=== PATIENT | male | born 1955 | race Caucasian/White ===

== ENCOUNTER 2022-12-30 11:33 | Emergency (ER) | payer MEDICAID, SELFPAY ==
--- NOTE | ~2022-12-30 | CT_ITS ---
EXAMINATION: CT ABDOMEN AND PELVIS WITH CONTRAST CLINICAL INFORMATION: Tenderness of a left inguinal hernia COMPARISON: None available. TECHNIQUE: Multidetector volumetric images were obtained from the superior aspect of the liver through the pubic symphysis following administration 85 mL of Omnipaque 350 intravenous contrast. Sagittal and coronal reformatted images were obtained on the technologist's workstation. Oral contrast: No This CT examination was performed using dose optimization techniques as appropriate, variously including the following: *Automated exposure control *Adjustment of mA and/or kV according to patient size (this includes techniques or standardized protocols for targeted exams where dose is matched to indication/reason for exam; i.e. extremities or head) *Use of iterative reconstruction technique DLP: 750 mGy-cm FINDINGS: LUNG BASES: The visualized lung bases are unremarkable. LIVER, GALLBLADDER, AND BILIARY TREE: The liver is normal in size, shape, and attenuation. No focal hepatic lesion or biliary ductal dilatation is present. The gallbladder is unremarkable with no evidence of radiopaque gallstones, gallbladder wall thickening, or obvious pericholecystic inflammatory changes. PANCREAS: Unremarkable. SPLEEN: Unremarkable. ADRENAL GLANDS: Unremarkable. KIDNEYS AND URETERS: The kidneys are normal in size, shape, and attenuation. No hydronephrosis, hydroureter, or calculi seen. No perinephric stranding. Simple left renal cyst. No specific follow-up recommended. BLADDER: Unremarkable. GASTROINTESTINAL TRACT: The stomach is decompressed. Normal caliber small bowel. There is no obstruction. Normal appendix. There is extensive colonic diverticulosis, throughout the entirety of the colon. No diverticulitis noted. A portion of the sigmoid colon extends into the left inguinal hernia. No free air. No free fluid. ABDOMINAL WALL: Large left inguinal hernia which contains a portion of the sigmoid colon. No free fluid. Minimal stranding of the fat within the hernia sac. LYMPH NODES: Normal. VASCULAR: Unremarkable. PELVIC VISCERA: Significantly enlarged prostate. This measures 6.3 cm transverse. OSSEOUS STRUCTURES: No acute or suspicious osseous abnormality. Bilateral L5 pars defects. Degenerative change throughout the spine. Vacuum disc phenomenon at the lower lumbar spine. Mild degenerative changes of the hips. CT/CT abdomen pelvis w IV con IMPRESSION: 1. Large left inguinal hernia containing a portion of the sigmoid colon. Minimal stranding of the fat within the hernia sac, which appears separate from the bowel. No free fluid. No bowel wall thickening. No convincing evidence for diverticulitis. 2. Extensive pancolonic diverticulosis. Fleischner guidelines were followed.
[2022-12-30 11:37] VITALS: BP 147/86; PULSE 80; RESP 17; TEMP 36.6; O2SAT 98; BMI 28.9
--- NOTE | 2022-12-30 11:38 | ED.ABDPAIN ---
HPI - Abdominal Pain General Chief Complaint: Abdominal Pain <FREDERICK Jansen - Last Filed: 12/30/22 11:43> Stated Complaint: Abd pain <FREDERICK Jansen - Last Filed: 12/30/22 11:43> Time Seen by Provider: 12/30/22 12:57 <FREDERICK Jansen - Last Filed: 12/30/22 11:43> Source: patient <Nathaniel Pedraza MD - Last Filed: 12/30/22 15:54> Mode of arrival: ambulatory <Nathaniel Pedraza MD - Last Filed: 12/30/22 15:54> Limitations: no limitations <Nathaniel Pedraza MD - Last Filed: 12/30/22 15:54> History of Present Illness HPI narrative: 67-year-old male presents with abdominal pain. The pain started about 1 week ago. The pain is constant. Progressively getting worse. There is no clear relieving features. Worse with lying down. He describes urinary frequency and urgency but no dysuria or blood in his urine. Denies any fevers or chills. Denies any nausea vomiting. Denies any diarrhea or constipation. He describes the pain as ?pain. ? The pain is moderate to severe. The pain does not radiate. Patient has never had this pain before. <Nathaniel Pedraza MD - Last Filed: 12/30/22 15:54> Related Data Home Medications: Previous Rx's Medication Instructions Recorded oxycodone 5 mg tablet 5 mg PO Q8H PRN pain #7 tabs 12/30/22 <FREDERICK Jansen - Last Filed: 12/30/22 11:43> Allergies/Adverse Reactions: Allergies Allergy/AdvReac Type Severity Reaction Status Date / Time No Known Allergies Allergy Verified 12/30/22 11:36 <FREDERICK Jansen - Last Filed: 12/30/22 11:43> [facility] Social History Social History: Social History Advance Directives: No Advance Directives Information Provided: Yes <FREDERICK Jansen - Last Filed: 12/30/22 11:43> Physical Exam ED Vital Signs: Vital Signs - 24 hr 12/30/22 11:37 Temperature 98 F Pulse Rate 80 Respiratory Rate 17 Blood Pressure 147/86 H Pulse Oximetry 98 Oxygen Delivery Method Room Air BMI result Body Mass Index 28.9 <FREDERICK Jansen - Last Filed: 12/30/22 11:43> Vital Signs - 24 hr 12/30/22 11:37 Temperature 98 F Pulse Rate 80 Respiratory Rate 17 Blood Pressure 147/86 H Pulse Oximetry 98 Oxygen Delivery Method Room Air BMI result Body Mass Index 28.9 <Nathaniel Pedraza MD - Last Filed: 12/30/22 15:54> GEN: Well developed, no acute distress, alert, oriented HEENT: Normocephalic, atraumatic, normal external ears, nose appears normal, no oropharyngeal edema or exudates Eyes: Normal to appearance Neck: Supple, no lymphadenopathy Respiratory: Talks in complete sentences, no respiratory distress, clear to auscultation bilaterally Cardiovascular: Regular rate and rhythm, no murmurs rubs or gallops Abdomen: Soft, nontender, nondistended, no guarding, no rebound, negative McBurney's point tenderness, negative Alicia sign Back: Right-sided CVA tenderness Extremities: No clubbing cyanosis or edema Neurologic: No focal neurologic deficits, cranial nerves 2-12 intact, strength is 5/5 bilaterally, gait normal Skin: No rash <Nathaniel Pedraza MD - Last Filed: 12/30/22 15:54> Course Course Course Narrative: RME - 67 yo Icelandic speaking male presents to the ER for evaluation of a worsening left inguinal hernia. He states 1 week ago it popped out and has been very painful. He is able to partially push it back in and hold it in place with a belt. +nausea but no vomiting. Normal BMs. Large left inguinal hernia on exam, tender - difficult to fully examine in triage. Plan: CT scan, labs <FREDERICK Jansen - Last Filed: 12/30/22 11:43> Reevaluation(s) Reevaluation #1: Patient's pain is controlled at this time. He his pain complaints on the right side. He was noted to have a left inguinal hernia which I was able to reduce it was minimally tender. There is no evidence of obstruction. We discussed concerning signs and symptoms of an incarcerated strangulated hernia. He will return for the symptoms. Will refer to General surgery. The etiology of his right-sided pain is not clearly understood at this time. As far as that pain goes, for uncontrolled pain, any concerning symptoms, he is instructed to return to the hospital. <Nathaniel Pedraza MD - Last Filed: 12/30/22 15:54> Time: 15:52 <Nathaniel Pedraza MD - Last Filed: 12/30/22 15:54> Medical Decision Making Medical Decision Making MDM Narrative: 67-year-old male presents with abdominal pain. Examination revealed right CVA tenderness. Differential diagnosis is broad but includes renal colic as are leading diagnosis. Patient will receive CT scan laboratory analysis, analgesics, antiemetics and fluids for the time being. I doubt catastrophic/red flag event such as AAA, dissection, perforated viscus <Nathaniel Pedraza MD - Last Filed: 12/30/22 15:54> Differential Diagnosis Differential Diagnoses: The differential diagnosis associated with the presentation includes (Renal colic, biliary colic, colitis, diverticulitis, appendicitis, IBD, IBS, mesenteric adenitis) <Nathaniel Pedraza MD - Last Filed: 12/30/22 15:54> Right abdominal pain, left inguinal hernia <Nathaniel Pedraza MD - Last Filed: 12/30/22 15:54> Admission/Observation Consideration of admission/observation: Escalation of care including admission/observation considered <Nathaniel Pedraza MD - Last Filed: 12/30/22 15:54> Lab Data [facility] Lab Attestation statement: I reviewed the patient's lab results. <Nathaniel Pedraza MD - Last Filed: 12/30/22 15:54> Result Diagrams: 12/30/22 11:52 12/30/22 11:52 <FREDERICK Jansen - Last Filed: 12/30/22 11:43> Labs: Lab Results 12/30/22 12/30/22 12/30/22 Range/Units 11:52 11:52 11:52 WBC 9.3 (4.8-10.8) X10*3/uL RBC 5.27 (4.60-5.80) X10*6/uL Hgb 14.4 (14.0-18.0) g/dl Hct 43.2 (42.0-52.0) % MCV 82.0 (80.0-98.0) fL MCH 27.3 (27.0-33.0) pg MCHC 33.3 (31.0-36.0) g/dl RDW 14.4 (11.0-16.0) % Plt Count 193 (160-400) X10*3/uL MPV 11.2 (9.4-12.4) fL Immature Gran % (Auto) 0.1 (0.0-0.4) % Neut % (Auto) 36.1 L (45-73) % Lymph % (Auto) 38.3 (20-40) % Brantley % (Auto) 8.9 (2-11) % Eos % (Auto) 15.6 H (0-4) % Baso % (Auto) 1.0 (0-2) % Lymph # (Auto) 3.6 (1.2-4.9) X10*3/uL Brantley # (Auto) 0.8 (0.1-1.2) X10*3/uL Eos # (Auto) 1.5 H (0.0-0.4) X10*3/uL Baso # (Auto) 0.1 (0.0-0.2) X10*3/uL Abs Immat Gran (auto) 0.01 (0.00-0.03) X10*3/uL Absolute Neuts (auto) 3.4 (2.0-8.3) x10*3/uL Absolute Nucleated RBC 0.000 (0.0-0.012) X10*3/uL Nucleated RBC % (auto) 0.0 (0.0-0.2) /100WBC PT 11.2 (10.0-13.1) SEC INR 1.0 (0.9-1.1) APTT 34.7 (26.0-36.4) SEC Sodium 139 (135-145) mmol/L Potassium 3.9 (3.3-5.1) mmol/L Chloride 104 (96-108) mmol/L Carbon Dioxide 27 (22-29) mmol/L Anion Gap 12 (12-20) BUN 20 H (9-16) mg/dL Creatinine 1.11 (0.5-1.4) mg/dL Estim Creat Clear Calc 59.8 Estimated GFR > 60 Random Glucose 91 (60-115) mg/dL Lactic Acid (0.5-2.0) mmol/L Calcium 9.5 (8.4-10.2) mg/dL Magnesium 2.0 (1.6-2.6) mg/dL Total Bilirubin 0.9 (0.0-1.0) mg/dL Direct Bilirubin 0.2 (0.0-0.5) mg/dL AST 30 (5-37) U/L ALT 20 (0-40) U/L Alkaline Phosphatase 57 (39-117) U/L Total Protein 7.8 (6.5-8.0) g/dL Albumin 4.6 (3.5-5.0) g/dL Urine Color Urine Appearance Urine pH (5.0-9.0) Ur Specific Cl[place] (1.005-1.025) Urine Protein (Neg-Trace) mg/dL Urine Glucose (UA) (Negative) mg/dL Urine Ketones (Negative) mg/dL Urine Blood (Negative) Urine Nitrite (Negative) Ur Leukocyte Esterase (Negative) COVID-19 ([facility]) (Negative) COVID-19 Clin Com 12/30/22 12/30/22 12/30/22 Range/Units 11:52 11:52 12:05 WBC (4.8-10.8) X10*3/uL RBC (4.60-5.80) X10*6/uL Hgb (14.0-18.0) g/dl Hct (42.0-52.0) % MCV (80.0-98.0) fL MCH (27.0-33.0) pg MCHC (31.0-36.0) g/dl RDW (11.0-16.0) % Plt Count (160-400) X10*3/uL MPV (9.4-12.4) fL Immature Gran % (Auto) (0.0-0.4) % Neut % (Auto) (45-73) % Lymph % (Auto) (20-40) % Brantley % (Auto) (2-11) % Eos % (Auto) (0-4) % Baso % (Auto) (0-2) % Lymph # (Auto) (1.2-4.9) X10*3/uL Brantley # (Auto) (0.1-1.2) X10*3/uL Eos # (Auto) (0.0-0.4) X10*3/uL Baso # (Auto) (0.0-0.2) X10*3/uL Abs Immat Gran (auto) (0.00-0.03) X10*3/uL Absolute Neuts (auto) (2.0-8.3) x10*3/uL Absolute Nucleated RBC (0.0-0.012) X10*3/uL Nucleated RBC % (auto) (0.0-0.2) /100WBC PT (10.0-13.1) SEC INR (0.9-1.1) APTT (26.0-36.4) SEC Sodium (135-145) mmol/L Potassium (3.3-5.1) mmol/L Chloride (96-108) mmol/L Carbon Dioxide (22-29) mmol/L Anion Gap (12-20) BUN (9-16) mg/dL Creatinine (0.5-1.4) mg/dL Estim Creat Clear Calc Estimated GFR Random Glucose (60-115) mg/dL Lactic Acid 3.0 H* (0.5-2.0) mmol/L Calcium (8.4-10.2) mg/dL Magnesium (1.6-2.6) mg/dL Total Bilirubin (0.0-1.0) mg/dL Direct Bilirubin (0.0-0.5) mg/dL AST (5-37) U/L ALT (0-40) U/L Alkaline Phosphatase (39-117) U/L Total Protein (6.5-8.0) g/dL Albumin (3.5-5.0) g/dL Urine Color Yellow Urine Appearance Clear Urine pH 5.5 (5.0-9.0) Ur Specific Clov[place] 1.015 (1.005-1.025) Urine Protein Negative (Neg-Trace) mg/dL Urine Glucose (UA) Negative (Negative) mg/dL Urine Ketones Negative (Negative) mg/dL Urine Blood Negative (Negative) Urine Nitrite Negative (Negative) Ur Leukocyte Esterase Negative (Negative) COVID-19 ([facility]) Negative (Negative) COVID-19 Clin Com See Note <FREDERICK Jansen - Last Filed: 12/30/22 11:43> Lab Results 12/30/22 12/30/22 12/30/22 Range/Units 11:52 11:52 11:52 WBC 9.3 (4.8-10.8) X10*3/uL RBC 5.27 (4.60-5.80) X10*6/uL Hgb 14.4 (14.0-18.0) g/dl Hct 43.2 (42.0-52.0) % MCV 82.0 (80.0-98.0) fL MCH 27.3 (27.0-33.0) pg MCHC 33.3 (31.0-36.0) g/dl RDW 14.4 (11.0-16.0) % Plt Count 193 (160-400) X10*3/uL MPV 11.2 (9.4-12.4) fL Immature Gran % (Auto) 0.1 (0.0-0.4) % Neut % (Auto) 36.1 L (45-73) % Lymph % (Auto) 38.3 (20-40) % Brantley % (Auto) 8.9 (2-11) % Eos % (Auto) 15.6 H (0-4) % Baso % (Auto) 1.0 (0-2) % Lymph # (Auto) 3.6 (1.2-4.9) X10*3/uL Brantley # (Auto) 0.8 (0.1-1.2) X10*3/uL Eos # (Auto) 1.5 H (0.0-0.4) X10*3/uL Baso # (Auto) 0.1 (0.0-0.2) X10*3/uL Abs Immat Gran (auto) 0.01 (0.00-0.03) X10*3/uL Absolute Neuts (auto) 3.4 (2.0-8.3) x10*3/uL Absolute Nucleated RBC 0.000 (0.0-0.012) X10*3/uL Nucleated RBC % (auto) 0.0 (0.0-0.2) /100WBC PT 11.2 (10.0-13.1) SEC INR 1.0 (0.9-1.1) APTT 34.7 (26.0-36.4) SEC Sodium 139 (135-145) mmol/L Potassium 3.9 (3.3-5.1) mmol/L Chloride 104 (96-108) mmol/L Carbon Dioxide 27 (22-29) mmol/L Anion Gap 12 (12-20) BUN 20 H (9-16) mg/dL Creatinine 1.11 (0.5-1.4) mg/dL Estim Creat Clear Calc 59.8 Estimated GFR > 60 Random Glucose 91 (60-115) mg/dL Lactic Acid (0.5-2.0) mmol/L Calcium 9.5 (8.4-10.2) mg/dL Magnesium 2.0 (1.6-2.6) mg/dL Total Bilirubin 0.9 (0.0-1.0) mg/dL Direct Bilirubin 0.2 (0.0-0.5) mg/dL AST 30 (5-37) U/L ALT 20 (0-40) U/L Alkaline Phosphatase 57 (39-117) U/L Total Protein 7.8 (6.5-8.0) g/dL Albumin 4.6 (3.5-5.0) g/dL Urine Color Urine Appearance Urine pH (5.0-9.0) Ur Specific Cl[place] (1.005-1.025) Urine Protein (Neg-Trace) mg/dL Urine Glucose (UA) (Negative) mg/dL Urine Ketones (Negative) mg/dL Urine Blood (Negative) Urine Nitrite (Negative) Ur Leukocyte Esterase (Negative) COVID-19 ([facility]) (Negative) COVID-19 Clin Com 12/30/22 12/30/22 12/30/22 Range/Units 11:52 11:52 12:05 WBC (4.8-10.8) X10*3/uL RBC (4.60-5.80) X10*6/uL Hgb (14.0-18.0) g/dl Hct (42.0-52.0) % MCV (80.0-98.0) fL MCH (27.0-33.0) pg MCHC (31.0-36.0) g/dl RDW (11.0-16.0) % Plt Count (160-400) X10*3/uL MPV (9.4-12.4) fL Immature Gran % (Auto) (0.0-0.4) % Neut % (Auto) (45-73) % Lymph % (Auto) (20-40) % Brantley % (Auto) (2-11) % Eos % (Auto) (0-4) % Baso % (Auto) (0-2) % Lymph # (Auto) (1.2-4.9) X10*3/uL Brantley # (Auto) (0.1-1.2) X10*3/uL Eos # (Auto) (0.0-0.4) X10*3/uL Baso # (Auto) (0.0-0.2) X10*3/uL Abs Immat Gran (auto) (0.00-0.03) X10*3/uL Absolute Neuts (auto) (2.0-8.3) x10*3/uL Absolute Nucleated RBC (0.0-0.012) X10*3/uL Nucleated RBC % (auto) (0.0-0.2) /100WBC PT (10.0-13.1) SEC INR (0.9-1.1) APTT (26.0-36.4) SEC Sodium (135-145) mmol/L Potassium (3.3-5.1) mmol/L Chloride (96-108) mmol/L Carbon Dioxide (22-29) mmol/L Anion Gap (12-20) BUN (9-16) mg/dL Creatinine (0.5-1.4) mg/dL Estim Creat Clear Calc Estimated GFR Random Glucose (60-115) mg/dL Lactic Acid 3.0 H* (0.5-2.0) mmol/L Calcium (8.4-10.2) mg/dL Magnesium (1.6-2.6) mg/dL Total Bilirubin (0.0-1.0) mg/dL Direct Bilirubin (0.0-0.5) mg/dL AST (5-37) U/L ALT (0-40) U/L Alkaline Phosphatase (39-117) U/L Total Protein (6.5-8.0) g/dL Albumin (3.5-5.0) g/dL Urine Color Yellow Urine Appearance Clear Urine pH 5.5 (5.0-9.0) Ur Specific [place] 1.015 (1.005-1.025) Urine Protein Negative (Neg-Trace) mg/dL Urine Glucose (UA) Negative (Negative) mg/dL Urine Ketones Negative (Negative) mg/dL Urine Blood Negative (Negative) Urine Nitrite Negative (Negative) Ur Leukocyte Esterase Negative (Negative) COVID-19 ([facility]) Negative (Negative) COVID-19 Clin Com See Note <Nathaniel Pedraza MD - Last Filed: 12/30/22 15:54> Independent Interpretation I performed an independent interpretation of an: CT Scan <Nathaniel Pedraza MD - Last Filed: 12/30/22 15:54> Radiology Impression Discussion of test interpretation with radiology: I have reviewed the radiologist's reading. ( CT/CT abdomen pelvis w IV con IMPRESSION: 1. Large left inguinal hernia containing a portion of the sigmoid colon. Minimal stranding of the fat within the hernia sac, which appears separate from the bowel. No free fluid. No bowel wall thickening. No convincing evidence for divert) <Nathaniel Pedraza MD - Last Filed: 12/30/22 15:54> Independent Historian Clinical information obtained from an independent historian. History obtained from or confirmed by: Other (Child) <Nathaniel Pedraza MD - Last Filed: 12/30/22 15:54> Tests considered The following testing was considered but not selected: Ultrasound <Nathaniel Pedraza MD - Last Filed: 12/30/22 15:54> Prescription Management I considered prescription management with: Pain Medication <Nathaniel Pedraza MD - Last Filed: 12/30/22 15:54> Medications Administered Discontinued Medications Generic Name Dose Route Start Last Admin Trade Name Bolivarq PRN Reason Stop Dose Admin Sodium Chloride 1,000 mls @ 999 mls/hr 12/30/22 13:15 12/30/22 14:12 Ns IV 12/30/22 14:15 999 mls/hr .Q1H1M MESSI Administration Iohexol 100 ml 12/30/22 13:53 12/30/22 13:53 Iohexol 350 Mg/Ml 100 Ml Infus..Btl IV 12/30/22 13:54 85 ml ONCE ONE Administration Ketorolac Tromethamine 15 mg 12/30/22 13:10 12/30/22 14:12 Ketorolac Tromethamine 15 Mg/Ml Vial IVPUSH 12/30/22 13:11 15 mg ONCE ONE Administration Ondansetron HCl 4 mg 12/30/22 13:10 12/30/22 14:12 Ondansetron Hcl 4 Mg/2 Ml Vial IVPUSH 12/30/22 13:11 4 mg ONCE ONE Administration <FREDERICK Jansen - Last Filed: 12/30/22 11:43> Medications Administered Discontinued Medications Generic Name Dose Route Start Last Admin Trade Name Freq PRN Reason Stop Dose Admin Sodium Chloride 1,000 mls @ 999 mls/hr 12/30/22 13:15 12/30/22 14:12 Ns IV 12/30/22 14:15 999 mls/hr .Q1H1M MESSI Administration Iohexol 100 ml 12/30/22 13:53 12/30/22 13:53 Iohexol 350 Mg/Ml 100 Ml Infus..Btl IV 12/30/22 13:54 85 ml ONCE ONE Administration Ketorolac Tromethamine 15 mg 12/30/22 13:10 12/30/22 14:12 Ketorolac Tromethamine 15 Mg/Ml Vial IVPUSH 12/30/22 13:11 15 mg ONCE ONE Administration Ondansetron HCl 4 mg 12/30/22 13:10 12/30/22 14:12 Ondansetron Hcl 4 Mg/2 Ml Vial IVPUSH 12/30/22 13:11 4 mg ONCE ONE Administration <Nathaniel Pedraza MD - Last Filed: 12/30/22 15:54> Discharge Plan Discharge Clinical Impression: Abdominal pain, Inguinal hernia <FREDERICK Jansen - Last Filed: 12/30/22 11:43> Patient Disposition: Home, Self-Care <FREDERICK Jansen - Last Filed: 12/30/22 11:43> Instructions: Inguinal Hernia (ED), Abdominal Pain (ED) <FREDERICK Jansen - Last Filed: 12/30/22 11:43> Prescriptions: New oxycodone 5 mg tablet 5 mg PO Q8H PRN (Reason: pain) Qty: 7 0RF Rx Instructions: Partial Fill upon patient request. <FREDERICK Jansen - Last Filed: 12/30/22 11:43> Referrals: Porfirio Bear MD [Physician] - 1 week <FREDERICK Jansen - Last Filed: 12/30/22 11:43> Print Language: Icelandic <FREDERICK Jansen - Last Filed: 12/30/22 11:43>
[2022-12-30 11:58] LABS: MANUAL DIFF FLAG NO
[2022-12-30 12:03] LABS: Basophils Absolute Auto 0.1 X10*3/uL (0.0-0.2); Eosinophils Absolute Auto 1.5 X10*3/uL (0.0-0.4); Eosinophils Percent Auto 15.6 % (0-4); Hematocrit 43.2 % (42.0-52.0); Hemoglobin 14.4 g/dl (14.0-18.0); Imm Gran Abs Auto 0.01 X10*3/uL (0.00-0.03); Imm Gran Pct Auto 0.1 % (0.0-0.4); Lymphocytes Absolute Auto 3.6 X10*3/uL (1.2-4.9); Lymphocytes Percent Auto 38.3 % (20-40); Mean Corpuscular HGB Conc 33.3 g/dl (31.0-36.0); Mean Corpuscular Hemoglobin 27.3 pg (27.0-33.0); Mean Platelet Volume 11.2 fL (9.4-12.4); Monocytes Absolute Auto 0.8 X10*3/uL (0.1-1.2); Monocytes Percent Auto 8.9 % (2-11); Neutrophils Absolute Auto 3.4 x10*3/uL (2.0-8.3); Neutrophils Percent Auto 36.1 % (45-73); Platelet Count 193 X10*3/uL (160-400); Red Blood Count 5.27 X10*6/uL (4.60-5.80); Red Cell Distribution Width 14.4 % (11.0-16.0); White Blood Count 9.3 X10*3/uL (4.8-10.8)
[2022-12-30 12:07] LABS: Prothrombin Time 11.2 SEC (10.0-13.1)
[2022-12-30 12:10] LABS: Partial Thromboplastin Time 34.7 SEC (26.0-36.4)
[2022-12-30 12:20] LABS: Alanine Aminotransferase 20 U/L (0-40); Albumin Level 4.6 g/dL (3.5-5.0); Alkaline Phosphatase 57 U/L (39-117); Anion Gap 12 (12-20); Aspartate Amino Transferase 30 U/L (5-37); Bilirubin Direct 0.2 mg/dL (0.0-0.5); Bilirubin Total 0.9 mg/dL (0.0-1.0); Blood Urea Nitrogen 20 mg/dL (9-16); Calcium 9.5 mg/dL (8.4-10.2); Carbon Dioxide 27 mmol/L (22-29); Chloride 104 mmol/L (96-108); Creatinine Clr Calc Pharmacy 59.8; Estimated Glomerular Filt Rate > 60; Glucose Random 91 mg/dL (60-115); Potassium 3.9 mmol/L (3.3-5.1); Sodium 139 mmol/L (135-145); Total Protein 7.8 g/dL (6.5-8.0)
[2022-12-30 12:24] LABS: COVID-19 Test Negative (Negative); IDNOW Serial# 08D9AD1C
[2022-12-30 12:32] LABS: Appearance Urine Clear; Color Urine Yellow; Glucose Urine UA Negative (Negative); Leukocyte Esterase Urine Negative (Negative); Nitrite Urine Negative (Negative); PH 5.5 (5.0-9.0); Specific Gravity - Urine 1.015 (1.005-1.025); Urine Blood Negative (Negative); Urine Ketones Negative (Negative); Urine Protein Negative (Neg-Trace)
[2022-12-30] MEDS: iohexoL 350 MG/ML 100 ML INFUS..BTL IV (13:53)
[2022-12-30 13:57] LABS: Reflex Lactate? Lactic Acid Added
[2022-12-30] MEDS: 0.9 % Sodium Chloride 1,000 ML 999 ML IV (14:12)
[2022-12-30] MEDS: ondansetron HCL 4 MG/2 ML VIAL IVPUSH (14:12)
[2022-12-30] MEDS: Ketorolac Tromethamine 15 MG/ML VIAL IVPUSH (14:12)
[2022-12-30 15:58] VITALS: BP 132/84; PULSE 61; RESP 18; TEMP 36.4; O2SAT 98
== END 2022-12-30 16:08 | disposition home or self-care (01) ==
PROVIDERS: Physician Assistant; Emergency Provider Emergency Medicine
DX: K40.20 Bilateral inguinal hernia, without obstruction or gangrene, not specified as recurrent (principal); R10.9 Unspecified abdominal pain; Z20.822 Contact with and (suspected) exposure to COVID-19; Z20.828 Contact with and (suspected) exposure to other viral communicable diseases; Z79.899 Other long term (current) drug therapy
CPT/HCPCS: 36415; 74177; 80048; 80076; 81003; 83605; 83735; 85025; 85610; 85730; 87635; 96361; 96374; 96375; 99284; J1885; J2405; Q9967

== ENCOUNTER 2023-03-12 19:02 | Emergency (ER) | payer MEDICAID, OTHER, SELFPAY ==
--- NOTE | ~2023-03-12 | CT_ITS ---
EXAMINATION: CT ABDOMEN AND PELVIS WITHOUT AND WITH CONTRAST (GI bleeding study) CLINICAL INFORMATION: Diverticular bleed COMPARISON: 12/30/2022 TECHNIQUE: Multidetector volumetric imaging was performed from the superior aspect of the liver through the pubic symphysis following administration of 85 mL Omnipaque 350 intravenous contrast. Postcontrast images were acquired during the arterial and portal venous phases. Sagittal and coronal reformatted images were obtained on the technologist workstation. This CT examination was performed using dose optimization techniques as appropriate, variously including the following: *Automated exposure control *Adjustment of mA and/or kV according to patient size (this includes techniques or standardized protocols for targeted exams where dose is matched to indication/reason for exam; i.e. extremities or head) *Use of iterative reconstruction technique DLP: 1344 mGy-cm FINDINGS: LUNG BASES: The visualized lung bases are unremarkable. GI TRACT: Pancolonic diverticulosis most concentrated within the sigmoid colon. There is active bleeding from the mid transverse colon, likely originating from a diverticulum as shown on the franklin images. There is minimal fat stranding along the proximal sigmoid colon which may represent an element of active diverticulitis. Stomach and small bowel unremarkable. Normal appendix. LIVER, GALLBLADDER, AND BILIARY TREE: The liver is normal in size, shape, and attenuation. No focal hepatic lesion or biliary ductal dilatation is present. The gallbladder is unremarkable with no evidence of radiopaque gallstones, gallbladder wall thickening, or obvious pericholecystic inflammatory changes. PANCREAS: Unremarkable. SPLEEN: Unremarkable. ADRENAL GLANDS: Unremarkable. KIDNEYS AND URETERS: The kidneys are normal in size, shape, and attenuation. No hydronephrosis, hydroureter, or calculi seen. Simple cysts in the bilateral kidneys are benign. No follow-up imaging recommended. No perinephric stranding. BLADDER: Mild bladder wall thickening likely detrussor hypertrophy. ABDOMINAL WALL: Again seen is a large fat-containing indirect inguinal hernia on the left and a smaller fat-containing inguinal hernia on the right. LYMPH NODES: Normal. VASCULAR: Unremarkable. PELVIC VISCERA: Massive prostatomegaly measuring up to 6.2 cm transversely. OSSEOUS STRUCTURES: No acute or suspicious osseous abnormalities. CT/CT gi bleed abd pel wo/w IVcon IMPRESSION: * Active bleeding from the mid transverse colon likely originating from a diverticulum. * Pancolonic diverticulosis. There is minimal fat stranding along the proximal sigmoid colon which may represent an element of active diverticulitis /chronic diverticular disease with mild active inflammation. * Massive prostatomegaly with associated mild bladder wall thickening likely detrussor hypertrophy. * Stable large fat-containing indirect inguinal hernia on the left and smaller fat-containing inguinal hernia on the right. No associated herniation of the sigmoid colon on the current exam (as was seen previously)
--- NOTE | 2023-03-12 19:16 | ED.GIBLEED ---
HPI - GI Bleed General Chief complaint: GI Bleed Stated complaint: stool bleeding Time Seen by Provider: 03/12/23 22:11 Source: patient Mode of arrival: ambulatory Limitations: no limitations History of Present Illness HPI Narrative: 67 y/o [place] speaking male with history of GI bleed due to diverticulosis requiring blood transfusion in the past (in [place]) presents to the ER for evaluation of BRBPR x7 that started at midnight, pure blood no stool. Not on blood thinners. Reports 3/10 pain in the middle of the abdomen. Had chest pain 3 days ago but none now. Feels a little short of breath. No dizziness. Hx hemorrhoids 4 years ago. Patient does have lower abdomen abdominal discomfort H&H in 01/19 was 14.4/43 today's 11.7/35.2 patient not on any anticoagulant but takes naproxen for pain Related Data Previous Rx's Medication Instructions Recorded oxycodone 5 mg tablet 5 mg PO Q8H PRN pain #7 tabs 12/30/22 Allergies Allergy/AdvReac Type Severity Reaction Status Date / Time No Known Allergies Allergy Verified 12/30/22 11:36 Review of Systems Review of Systems: Yes all other systems are reviewed and are negative PMFSH Past Medical History Medical History (Updated 03/13/23 @ 03:30 by Efrain Ivye MD) Diverticular hemorrhage Diverticulitis Social History Social History Alcohol intake: never Smoked in Last 30 Days: No Use of substances other than those prescribed or required for medical reasons: No Advance Directives: No Advance Directives Information Provided: Yes Physical Exam Vital Signs: Vital Signs: Last Vital Signs Temp 98.3 F 03/13/23 06:37 Pulse 70 03/13/23 06:37 Resp 16 03/13/23 06:37 BP 112/75 03/13/23 06:37 Pulse Ox 99 03/13/23 06:37 O2 Del Method Room Air 03/13/23 06:37 BMI result Body Mass Index 30.1 Appearance: Alert. Oriented X3. No acute distress. Eyes: PERRLA, No Nystagmus ENT: Pharynx normal. Oral Mucosa moist Neck: Normal inspection. Neck supple. CVS: Normal heart rate and rhythm. Pulses normal. Respiratory: No respiratory distress. Equal air entry bilateral, no wheezing/rales/rhonchi Abdomen: Soft deep tenderness left lower and right lower abdomen no guarding or rebound tenderness, Bowel sounds are present, no mass palpable, no CVA tenderness rectal: Maroon color blood on the finger no hemorrhoids Skin: Skin warm and dry. Normal skin color. Normal skin turgor. Extremities: No lower extremity edema. No calf tenderness Neuro: Oriented X 3. No motor deficit. No sensory deficit.No cerebellar signs , cranial nerves II-XII intact Course Course Course Narrative: RME - 67 y/o [place] Island[place] speaking male with history of GI bleed due to diverticulosis requiring blood transfusion in the past (in [place]) presents to the ER for evaluation of BRBPR x7 that started at midnight, pure blood no stool. Not on blood thinners. Reports 3/10 pain in the middle of the abdomen. Had chest pain 3 days ago but none now. Feels a little short of breath. No dizziness. Hx hemorrhoids 4 years ago. Plan: labs, rectal exam Medications Administered Discontinued Medications Generic Name Dose Route Start Last Admin Trade Name Freq PRN Reason Stop Dose Admin Sodium Chloride 1,000 mls @ 999 mls/hr 03/12/23 22:33 03/13/23 01:14 Ns IV 03/12/23 23:33 Infused .Q1H1M ONE Infusion Iohexol 85 ml 03/12/23 23:25 03/12/23 23:25 Iohexol 350 Mg/Ml 100 Ml Infus..Btl IV 03/12/23 23:26 85 ml ONCE ONE Administration Morphine Sulfate 4 mg 03/12/23 23:22 03/12/23 23:29 Morphine Sulfate 4 Mg/Ml Cartridge IVPUSH 03/12/23 23:23 4 mg ONCE ONE Administration Protocol Ondansetron HCl 4 mg 03/12/23 23:22 03/12/23 23:30 Ondansetron Hcl 4 Mg/2 Ml Vial IVPUSH 03/12/23 23:23 4 mg ONCE ONE Administration Medical Decision Making Medical Decision Making [facility] Narrative: 2 am Patient with diverticular bleed CT bleeding scan showed active diverticular bleed patient had 7 bowel movements all bloody at home and 4 bowel movements in the ER all dark blood. Patient was given 1 unit of PRBC in the ER unable to transfer patient to neighboring hospitals as [facility] is full in capacity and not accepting any patient. Case discussed with [facility] accepted the patient under Dr. Moreno at [facility] ER. Patient does have stable vitals blood pressure at this time is 129/85 pulse rate 63 Lab Data [facility] Lab Attestation statement: I reviewed the patient's lab results. 03/12/23 21:12 03/12/23 21:11 Labs: Lab Results 03/12/23 03/12/23 03/12/23 Range/Units 21:11 21:11 21:12 WBC 9.6 (4.8-10.8) X10*3/uL RBC 4.21 L D (4.60-5.80) X10*6/uL Hgb 11.7 L (14.0-18.0) g/dl Hct 35.2 L (42.0-52.0) % MCV 83.6 (80.0-98.0) fL MCH 27.8 (27.0-33.0) pg MCHC 33.2 (31.0-36.0) g/dl RDW 14.4 (11.0-16.0) % Plt Count 206 (160-400) X10*3/uL MPV 11.3 (9.4-12.4) fL Immature Gran % (Auto) 0.3 (0.0-0.4) % Neut % (Auto) 41.4 L (45-73) % Lymph % (Auto) 31.3 (20-40) % Ocean % (Auto) 7.6 (2-11) % Eos % (Auto) 18.4 H (0-4) % Baso % (Auto) 1.0 (0-2) % Lymph # (Auto) 3.0 (1.2-4.9) X10*3/uL Ocean # (Auto) 0.7 (0.1-1.2) X10*3/uL Eos # (Auto) 1.8 H (0.0-0.4) X10*3/uL Baso # (Auto) 0.1 (0.0-0.2) X10*3/uL Abs Immat Gran (auto) 0.03 (0.00-0.03) X10*3/uL Absolute Neuts (auto) 4.0 (2.0-8.3) x10*3/uL Absolute Nucleated RBC 0.000 (0.0-0.012) X10*3/uL Nucleated RBC % (auto) 0.0 (0.0-0.2) /100WBC PT 11.3 (10.0-13.1) SEC INR 1.0 (0.9-1.1) APTT 34.2 (26.0-36.4) SEC Sodium 141 (135-145) mmol/L Potassium 4.4 (3.3-5.1) mmol/L Chloride 110 H (96-108) mmol/L Carbon Dioxide 25 (22-29) mmol/L Anion Gap 10 L (12-20) BUN 20 H (9-16) mg/dL Creatinine 0.92 (0.5-1.4) mg/dL Estim Creat Clear Calc 73.5 Estimated GFR > 60 Random Glucose 159 H (60-115) mg/dL Calcium 9.3 (8.4-10.2) mg/dL Magnesium 2.0 (1.6-2.6) mg/dL Total Bilirubin 0.3 (0.0-1.0) mg/dL Direct Bilirubin < 0.1 (0.0-0.5) mg/dL AST 16 (5-37) U/L ALT 13 (0-40) U/L Alkaline Phosphatase 63 (39-117) U/L Total Protein 7.2 (6.5-8.0) g/dL Albumin 3.8 (3.5-5.0) g/dL Urine Color Urine Appearance Urine pH (5.0-9.0) Ur Specific [place] (1.005-1.025) Urine Protein (Neg-Trace) mg/dL Urine Glucose (UA) (Negative) mg/dL Urine Ketones (Negative) mg/dL Urine Blood (Negative) Urine Nitrite (Negative) Ur Leukocyte Esterase (Negative) Stool Occult Blood (NEGATIVE) Blood Type Antibody Screen Crossmatch 03/12/23 03/12/23 03/12/23 Range/Units 21:12 22:43 23:07 WBC (4.8-10.8) X10*3/uL RBC (4.60-5.80) X10*6/uL Hgb (14.0-18.0) g/dl Hct (42.0-52.0) % MCV (80.0-98.0) fL MCH (27.0-33.0) pg MCHC (31.0-36.0) g/dl RDW (11.0-16.0) % Plt Count (160-400) X10*3/uL MPV (9.4-12.4) fL Immature Gran % (Auto) (0.0-0.4) % Neut % (Auto) (45-73) % Lymph % (Auto) (20-40) % Ocean % (Auto) (2-11) % Eos % (Auto) (0-4) % Baso % (Auto) (0-2) % Lymph # (Auto) (1.2-4.9) X10*3/uL [place] # (Auto) (0.1-1.2) X10*3/uL Eos # (Auto) (0.0-0.4) X10*3/uL Baso # (Auto) (0.0-0.2) X10*3/uL Abs Immat Gran (auto) (0.00-0.03) X10*3/uL Absolute Neuts (auto) (2.0-8.3) x10*3/uL Absolute Nucleated RBC (0.0-0.012) X10*3/uL Nucleated RBC % (auto) (0.0-0.2) /100WBC PT (10.0-13.1) SEC INR (0.9-1.1) APTT (26.0-36.4) SEC Sodium (135-145) mmol/L Potassium (3.3-5.1) mmol/L Chloride (96-108) mmol/L Carbon Dioxide (22-29) mmol/L Anion Gap (12-20) BUN (9-16) mg/dL Creatinine (0.5-1.4) mg/dL Estim Creat Clear Calc Estimated GFR Random Glucose (60-115) mg/dL Calcium (8.4-10.2) mg/dL Magnesium (1.6-2.6) mg/dL Total Bilirubin (0.0-1.0) mg/dL Direct Bilirubin (0.0-0.5) mg/dL AST (5-37) U/L ALT (0-40) U/L Alkaline Phosphatase (39-117) U/L Total Protein (6.5-8.0) g/dL Albumin (3.5-5.0) g/dL Urine Color Yellow Urine Appearance Clear Urine pH 6.0 (5.0-9.0) Ur Specific [place] 1.020 (1.005-1.025) Urine Protein Negative (Neg-Trace) mg/dL Urine Glucose (UA) Negative (Negative) mg/dL Urine Ketones Negative (Negative) mg/dL Urine Blood Negative (Negative) Urine Nitrite Negative (Negative) Ur Leukocyte Esterase Negative (Negative) Stool Occult Blood POSITIVE (NEGATIVE) Blood Type O Positive Antibody Screen NEGATIVE Crossmatch See Detail Radiology Impression Discussion of test interpretation with radiology: I have reviewed the radiologist's reading. Radiologist Impression: [place] [id number] CT Scan Report Signed Patient: Juan F Lawson MR#: [id number] : 1955 Acct:[id number] Age/Sex: 67 / M ADM Date: 03/12/23 Loc: .ED Attending Dr: Ordering Physician: Efrain Ivey MD Date of Service: 03/12/23 Procedure(s): CT gi bleed abd pel wo/w IVcon Accession Number(s): [id number] cc: Efrain Ivey MD~ EXAMINATION: CT ABDOMEN AND PELVIS WITHOUT AND WITH CONTRAST (GI bleeding study) CLINICAL INFORMATION: Diverticular bleed? COMPARISON: 12/30/2022? TECHNIQUE: Multidetector volumetric imaging was performed from the superior aspect of the liver through the pubic symphysis following administration of 85 mL? Omnipaque 350 intravenous contrast. Postcontrast images were acquired during the arterial and portal venous phases. Sagittal and coronal reformatted images were obtained on the technologist workstation. This CT examination was performed using dose optimization techniques as appropriate, variously including the following: *Automated exposure control *Adjustment of mA and/or kV according to patient size (this includes techniques or standardized protocols for targeted exams where dose is matched to indication/reason for exam; i.e. extremities or head) *Use of iterative reconstruction technique DLP: 1344 mGy-cm FINDINGS: LUNG BASES: The visualized lung bases are unremarkable. GI TRACT: Pancolonic diverticulosis most concentrated within the sigmoid colon. There is active bleeding from the mid transverse colon, likely originating from a diverticulum as shown on the franklin images. There is minimal fat stranding along the proximal sigmoid colon which may represent an element of active diverticulitis. Stomach and small bowel unremarkable. Normal appendix. LIVER, GALLBLADDER, AND BILIARY TREE: The liver is normal in size, shape, and attenuation. No focal hepatic lesion or biliary ductal dilatation is present. The gallbladder is unremarkable with no evidence of radiopaque gallstones, gallbladder wall thickening, or obvious pericholecystic inflammatory changes.? PANCREAS: Unremarkable.? SPLEEN: Unremarkable.? ADRENAL GLANDS: Unremarkable.? KIDNEYS AND URETERS: The kidneys are normal in size, shape, and attenuation. No hydronephrosis, hydroureter, or calculi seen. Simple cysts in the bilateral kidneys are benign. No follow-up imaging recommended. No perinephric stranding. ? BLADDER: Mild bladder wall thickening likely detrussor hypertrophy.? ABDOMINAL WALL: Again seen is a large fat-containing indirect inguinal hernia on the left and a smaller fat-containing inguinal hernia on the right. LYMPH NODES: Normal. VASCULAR: Unremarkable. PELVIC VISCERA: Massive prostatomegaly measuring up to 6.2 cm transversely.? OSSEOUS STRUCTURES: No acute or suspicious osseous abnormalities.? CT/CT gi bleed abd pel wo/w IVcon IMPRESSION: *? Active bleeding from the mid transverse colon likely originating from a diverticulum. *? Pancolonic diverticulosis. There is minimal fat stranding along the proximal sigmoid colon which may represent an element of active diverticulitis /chronic diverticular disease with mild active inflammation. *? Massive prostatomegaly with associated mild bladder wall thickening likely detrussor hypertrophy. *? Stable large fat-containing indirect inguinal hernia on the left and smaller fat-containing inguinal hernia on the right. No associated herniation of the sigmoid colon on the current exam (as was seen previously) ? Dictated By: José Luis Mckeon MD Signed By: <Electronically signed by José Luis Mckeon MD in OV> 0 Critical Care Time Critical Care Time Critical Care Time: Yes Total Critical Care Time: 65 Attestation: The patient was critically ill with a high probability of imminent or life threatening deterioration. I spent greater than 70 minutes of discontinuous time evaluating the patient,delivering critical care at the bedside, discussing and evaluating pertinent data with consultants. Critical care time does not include time spent performing separately billable procedures or teaching. Total time spent performing critical care [id number]. Discharge Plan Discharge Clinical Impression: Lower gastrointestinal hemorrhage, Diverticulosis Patient Disposition: er [facility] Transfer Details: [facility] ED doctor Tiffanie GOLD Prescriptions: No Action oxycodone 5 mg tablet 5 mg PO Q8H PRN (Reason: pain) Qty: 7 0RF Rx Instructions: Partial Fill upon patient request. Interventions: Acute Care Transfer Worksheet (ED) Last Done: 03/13/23 07:04
[2023-03-12 19:17] VITALS: BP 184/106; PULSE 98; RESP 18; TEMP 37; O2SAT 99; BMI 30.1
--- NOTE | 2023-03-12 19:18 | ECG_ITS ---
Test Reason : CHEST PAIN Blood Pressure : / mmHG Vent. Rate : 091 BPM Atrial Rate : 091 BPM P-R Int : 140 ms QRS Dur : 088 ms QT Int : 352 ms P-R-T Axes : 039 -17 026 degrees QTc Int : 432 ms Normal sinus rhythm Normal ECG No previous ECGs available Referred By: Diana Biggs Electronically Signed By:KATE BUSH MD
[2023-03-12 21:18] LABS: Basophils Absolute Auto 0.1 X10*3/uL (0.0-0.2); Eosinophils Absolute Auto 1.8 X10*3/uL (0.0-0.4); Eosinophils Percent Auto 18.4 % (0-4); Hematocrit 35.2 % (42.0-52.0); Hemoglobin 11.7 g/dl (14.0-18.0); Imm Gran Abs Auto 0.03 X10*3/uL (0.00-0.03); Imm Gran Pct Auto 0.3 % (0.0-0.4); Lymphocytes Percent Auto 31.3 % (20-40); MANUAL DIFF FLAG NO; Mean Corpuscular HGB Conc 33.2 g/dl (31.0-36.0); Mean Corpuscular Hemoglobin 27.8 pg (27.0-33.0); Mean Corpuscular Volume 83.6 fL (80.0-98.0); Mean Platelet Volume 11.3 fL (9.4-12.4); Monocytes Absolute Auto 0.7 X10*3/uL (0.1-1.2); Monocytes Percent Auto 7.6 % (2-11); Neutrophils Percent Auto 41.4 % (45-73); Platelet Count 206 X10*3/uL (160-400); Red Blood Count 4.21 X10*6/uL (4.60-5.80); Red Cell Distribution Width 14.4 % (11.0-16.0); White Blood Count 9.6 X10*3/uL (4.8-10.8)
[2023-03-12 21:20] LABS: Appearance Urine Clear; Color Urine Yellow; Glucose Urine UA Negative (Negative); Leukocyte Esterase Urine Negative (Negative); Nitrite Urine Negative (Negative); Urine Blood Negative (Negative); Urine Ketones Negative (Negative); Urine Protein Negative (Neg-Trace)
[2023-03-12 21:24] LABS: Prothrombin Time 11.3 SEC (10.0-13.1)
[2023-03-12 21:26] LABS: Partial Thromboplastin Time 34.2 SEC (26.0-36.4)
[2023-03-12 21:34] LABS: Alanine Aminotransferase 13 U/L (0-40); Albumin Level 3.8 g/dL (3.5-5.0); Alkaline Phosphatase 63 U/L (39-117); Anion Gap 10 (12-20); Aspartate Amino Transferase 16 U/L (5-37); Bilirubin Direct < 0.1 mg/dL (0.0-0.5); Bilirubin Total 0.3 mg/dL (0.0-1.0); Blood Urea Nitrogen 20 mg/dL (9-16); Calcium 9.3 mg/dL (8.4-10.2); Carbon Dioxide 25 mmol/L (22-29); Chloride 110 mmol/L (96-108); Creatinine Clr Calc Pharmacy 73.5; Estimated Glomerular Filt Rate > 60; Glucose Random 159 mg/dL (60-115); Potassium 4.4 mmol/L (3.3-5.1); Sodium 141 mmol/L (135-145); Total Protein 7.2 g/dL (6.5-8.0)
[2023-03-12 22:00] VITALS: BP 129/82; PULSE 97; RESP 16; TEMP 36.6; O2SAT 99
[2023-03-12 22:55] LABS: OBS Int Ctl Valid YES; OBS1 POSITIVE (NEGATIVE)
[2023-03-12] MEDS: 0.9 % Sodium Chloride 1,000 ML 999 ML IV (23:06)
--- NOTE | 2023-03-12 23:10 | PC.NURSE ---
Pt presenting to ER after having bloody stools since noon today. Pt reports 12/10 pain in the abdomen and a headache. Pt denies nausea, vomiting, diarrhea. 20g IV was placed, fluids were hung, and a type and screen was collected and sent to the lab.
[2023-03-12] MEDS: iohexoL 350 MG/ML 100 ML INFUS..BTL 85 ML IV (23:25)
[2023-03-12] MEDS: Morphine Sulfate 4 MG/ML CARTRIDGE IVPUSH (23:29)
[2023-03-12] MEDS: ondansetron HCL 4 MG/2 ML VIAL IVPUSH (23:30)
--- NOTE | 2023-03-12 23:38 | PC.NURSE ---
Pt ambulated to bathroom independently with steady gait and good balance.
--- NOTE | 2023-03-13 01:24 | MHC.EDTECH ---
call out to [facility] transfer line at 0122, spoke to Merle and was told they weren't accepting GI bleeds and that they had no beds available
--- NOTE | 2023-03-13 01:46 | MHC.EDTECH ---
call out out to [facility] transfer line at 0130, they requested demographics
[2023-03-13 02:11] VITALS: BP 120/75; PULSE 65; RESP 11; TEMP 36.4
--- NOTE | 2023-03-13 02:25 | MHC.EDTECH ---
call out to [facility] for transport at 0232, eta estimated for about an hour
--- NOTE | 2023-03-13 02:26 | PC.NURSE ---
Pt resting in bed at this time. Blood has been hung. Pt currently has 2 20g IV's in the left AC anf forearm. Blood is running through the AC at this time. Pt is A&Ox4, GCS 15. Pt reports no nausea/vomiting or shortness of breath. Pt denies pain at this time. Pt is pleasant and conversing appropriately.
[2023-03-13 02:30] VITALS: BP 129/85; PULSE 63; RESP 15; TEMP 36.5
--- NOTE | 2023-03-13 03:04 | PC.NURSE ---
Called pt's daughter to update her that the pt is being transferred to [facility] and is getting a blood transfusion. Daughter - Padmini [phone]
--- NOTE | 2023-03-13 03:37 | MHC.EDTECH ---
[facility] called at [phone] to inform transport is backed up and will have next available for 0600
[2023-03-13 03:59] VITALS: BP 130/78; PULSE 69; RESP 11; TEMP 36.5
--- NOTE | 2023-03-13 05:55 | PC.NURSE ---
Pt got up about 2 hours ago nd went to the bathroom independently. Pt stated he had another bloody bowel movement. Pt stated he feels like he has to go again but not urgently.
[2023-03-13 06:37] VITALS: BP 112/75; PULSE 70; RESP 16; TEMP 36.8; O2SAT 99
--- NOTE | 2023-03-13 07:10 | PC.NURSE ---
Report called and given to Parviz GREENE at [facility]
== END 2023-03-13 07:11 | disposition short-term general hospital (02) ==
PROVIDERS: Physician Assistant; Emergency Provider Internal Medicine
DX: K92.2 Gastrointestinal hemorrhage, unspecified (principal); R10.30 Lower abdominal pain, unspecified
CPT/HCPCS: 36415; 36430; 74178; 80048; 80076; 81003; 82272; 83735; 85025; 85610; 85730; 86850; 86900; 86901; 86923; 93005; 96361; 96374; 96375; 99285; J2270; J2405; P9016; Q9967

== ENCOUNTER 2023-09-23 05:30 | Emergency (ER) | payer MEDICAID, OTHER, SELFPAY ==
--- NOTE | ~2023-09-23 | CT_ITS ---
EXAMINATION: CT HEAD WITHOUT CONTRAST CLINICAL INFORMATION: Headache. Hypertension. COMPARISON: None available. TECHNIQUE: Contiguous axial imaging was performed from the skull base to vertex without intravenous administration of contrast. This CT examination was performed using dose optimization techniques as appropriate, variously including the following: *Automated exposure control *Adjustment of mA and/or kV according to patient size (this includes techniques or standardized protocols for targeted exams where dose is matched to indication/reason for exam; i.e. extremities or head) *Use of iterative reconstruction technique DLP: 584 mGy-cm FINDINGS: There is no evidence of acute intracranial hemorrhage or territorial infarction. No abnormal mass effect or midline shift is seen. Valentin to white matter differentiation is well preserved. No extra-axial fluid collections are identified. No hydrocephalus. No significant volume loss. Patchy periventricular and deep white matter hypoattenuation is consistent with mild small vessel ischemic changes. No acute osseous or soft tissue abnormality. The mastoid air cells and visualized portions of the paranasal sinuses are well aerated. Left globe prosthesis. CT/CT head/brain wo IV con IMPRESSION: No acute intracranial pathology.
--- NOTE | ~2023-09-23 | XR_ITS ---
EXAMINATION: XR LUMBOSACRAL SPINE CLINICAL INFORMATION: CT abdomen/pelvis dated 12/30/2022 COMPARISON: CT dated 12/30/2022 TECHNIQUE: Three views of the lumbosacral spine. FINDINGS: No acute fracture or traumatic malalignment. Grade 1 anterolisthesis of L5 over S1 related to bilateral L5 spondylolysis. Moderate loss of disc space height at L4-L5 and L5-S1. Endplate osteophytes present throughout the lumbar spine. The paraspinal soft tissues are normal. XR/XR lumbar spine 2-3V IMPRESSION: * No acute fracture or traumatic malalignment. * Lumbar spondylosis as described.
--- NOTE | 2023-09-23 05:46 | ECG_ITS ---
Test Reason : RO CARDIAC Blood Pressure : / mmHG Vent. Rate : 082 BPM Atrial Rate : 082 BPM P-R Int : 146 ms QRS Dur : 098 ms QT Int : 366 ms P-R-T Axes : 047 -04 033 degrees QTc Int : 427 ms Normal sinus rhythm Normal ECG When compared with ECG of 12-MAR-2023 19:22, No significant change was found Referred By: Efrain Ivey Electronically Signed By:CLARK LOCKHART
[2023-09-23 05:49] VITALS: BP 168/98; PULSE 82; RESP 14; O2SAT 96; BMI 29.8
[2023-09-23 05:53] LABS: MANUAL DIFF FLAG NO
--- NOTE | 2023-09-23 05:53 | ED_ITS ---
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 according to patient and the family no focal weakness patient ambulated to the ER no focal weakness patient does have 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 no recent trauma or fall on arrival patient's blood pressure was 168/98 Related Data Previous Rx's Medication Instructions Recorded oxycodone 5 mg tablet 5 mg PO Q8H PRN pain #7 tabs 12/30/22 cavvoaurie-oyygfagloluef-mzwtwpwx 1 tab PO Q6H PRN haeadace #20 tabs 09/23/23 50 mg-325 mg-40 mg tablet tramadol 50 mg tablet 50 mg PO Q6H PRN pain #20 tabs 09/23/23 Allergies Allergy/AdvReac Type Severity Reaction Status Date / Time No Known Allergies Allergy Verified 09/23/23 06:21 Review of Systems 2 Review of Systems: Yes all other systems are reviewed and are negative [facility] Past Medical History Medical History Diverticular hemorrhage Diverticulitis Social History Social History Alcohol intake: never Advance Directives: No Physical Exam 2 Vital Signs: Vital Signs: Last Vital Signs Pulse 82 09/23/23 05:49 Resp 14 09/23/23 05:49 BP 168/98 H 09/23/23 05:49 Pulse Ox 96 09/23/23 05:49 O2 Del Method Room Air 09/23/23 05:49 BMI result Body Mass Index 29.8 Appearance: Alert. Oriented X3. No acute distress. Eyes: Prosthetic left eye ENT: Pharynx normal. Oral Mucosa moist Neck: Normal inspection. Neck supple. CVS: Normal heart rate and rhythm. Pulses normal. Respiratory: No respiratory distress. Equal air entry bilateral, no wheezing/rales/rhonchi Abdomen: Soft and nontender. Bowel sounds are present, no mass palpable, no CVA tenderness reducible left inguinal hernia back: Diffuse lumbar tenderness no deformity SLR negative b/l Skin: Skin warm and dry. Normal skin color. Normal skin turgor. Extremities: No lower extremity edema. No calf tenderness Neuro: Oriented X 3. No motor deficit. No sensory deficit.No cerebellar signs , cranial nerves II-XII intact Medications Administered Discontinued Medications Generic Name Dose Route Start Last Admin Trade Name Tali PRN Reason Stop Dose Admin Morphine Sulfate 4 mg 09/23/23 05:54 09/23/23 06:18 Morphine Sulfate 4 Mg/Ml Cartridge IVPUSH 09/23/23 05:55 4 mg ONCE ONE Administration Protocol Ondansetron HCl 4 mg 09/23/23 05:54 09/23/23 06:18 Ondansetron Hcl 4 Mg/2 Ml Vial IVPUSH 09/23/23 05:55 4 mg ONCE ONE Administration Medical Decision Making Medical Decision Making [facility] Narrative: Patient with headache clinically history of migraine headaches patient felt better after pain medication will discharge patient home on Fioricet Differential Diagnosis Differential Diagnoses: The differential diagnosis associated with the presentation includes SAH/ICH/migraine headache/tension headache Lab Data [facility] Lab Attestation statement: I reviewed the patient's lab results. 09/23/23 05:48 09/23/23 05:48 Labs: Lab Results 09/23/23 Range/Units 05:48 WBC 10.0 (4.8-10.8) X10*3/uL RBC 5.24 D (4.60-5.80) X10*6/uL Hgb 15.6 D (14.0-18.0) g/dl Hct 45.0 D (42.0-52.0) % MCV 85.9 (80.0-98.0) fL MCH 29.8 (27.0-33.0) pg MCHC 34.7 (31.0-36.0) g/dl RDW 13.2 (11.0-16.0) % Plt Count 157 L (160-400) X10*3/uL MPV 10.6 (9.4-12.4) fL Immature Gran % (Auto) 0.3 (0.0-0.4) % Neut % (Auto) 60.8 (45-73) % Lymph % (Auto) 19.7 L (20-40) % Metcalfe % (Auto) 10.4 (2-11) % Eos % (Auto) 8.3 H (0-4) % Baso % (Auto) 0.5 (0-2) % Lymph # (Auto) 2.0 (1.2-4.9) X10*3/uL Metcalfe # (Auto) 1.0 (0.1-1.2) X10*3/uL Eos # (Auto) 0.8 H (0.0-0.4) X10*3/uL Baso # (Auto) 0.1 (0.0-0.2) X10*3/uL Abs Immat Gran (auto) 0.03 (0.00-0.03) X10*3/uL Absolute Neuts (auto) 6.1 (2.0-8.3) x10*3/uL Absolute Nucleated RBC 0.000 (0.0-0.012) X10*3/uL Nucleated RBC % (auto) 0.0 (0.0-0.2) /100WBC Hold Purple Top SEE NOTE PT 12.2 (11.1-13.3) SEC INR 1.0 (0.9-1.1) Sodium 140 (135-145) mmol/L Potassium 3.8 (3.3-5.1) mmol/L Chloride 106 (96-108) mmol/L Carbon Dioxide 24 (22-29) mmol/L Anion Gap 14 (12-20) BUN 10 (9-16) mg/dL Creatinine 0.85 (0.5-1.4) mg/dL Estim Creat Clear Calc 76.3 Estimated GFR > 60 Random Glucose 116 H (60-115) mg/dL Calcium 9.3 (8.4-10.2) mg/dL Total Bilirubin 0.7 (0.0-1.0) mg/dL AST 30 (5-37) U/L ALT 33 (0-40) U/L Alkaline Phosphatase 61 (39-117) U/L Troponin I High Sens 4.8 (<3.5-35.0) ng/L Total Protein 8.1 H (6.5-8.0) g/dL Albumin 4.4 (3.5-5.0) g/dL Independent Interpretation I performed an independent interpretation of an: EKG and CT Scan Interpretation: No sinus rhythm heart rate 82 beats per minute normal intervals normal axis impression normal EKG Radiology Impression Discussion of test interpretation with radiology: I have reviewed the radiologist's reading. Discharge Plan Discharge Clinical Impression: Migraine Patient Disposition: Home, Self-Care Instructions: Migraine Headache (ED) Additional Instructions: Take pain medication as prescribed and follow with PCP Prescriptions: New tramadol 50 mg tablet 50 mg PO Q6H PRN (Reason: pain) Qty: 20 0RF bvqzuplyav-zdoyuflxbmqed-siht 50-325-40 mg tablet 1 tab PO Q6H PRN (Reason: haeadace) Qty: 20 0RF No Action oxycodone 5 mg tablet 5 mg PO Q8H PRN (Reason: pain) Qty: 7 0RF Rx Instructions: Partial Fill upon patient request.
[2023-09-23 05:54] LABS: Basophils Absolute Auto 0.1 X10*3/uL (0.0-0.2); Basophils Percent Auto 0.5 % (0-2); Eosinophils Absolute Auto 0.8 X10*3/uL (0.0-0.4); Eosinophils Percent Auto 8.3 % (0-4); Hemoglobin 15.6 g/dl (14.0-18.0); Imm Gran Abs Auto 0.03 X10*3/uL (0.00-0.03); Imm Gran Pct Auto 0.3 % (0.0-0.4); Lymphocytes Percent Auto 19.7 % (20-40); Mean Corpuscular HGB Conc 34.7 g/dl (31.0-36.0); Mean Corpuscular Hemoglobin 29.8 pg (27.0-33.0); Mean Corpuscular Volume 85.9 fL (80.0-98.0); Mean Platelet Volume 10.6 fL (9.4-12.4); Monocytes Percent Auto 10.4 % (2-11); Neutrophils Absolute Auto 6.1 x10*3/uL (2.0-8.3); Neutrophils Percent Auto 60.8 % (45-73); Platelet Count 157 X10*3/uL (160-400); Red Blood Count 5.24 X10*6/uL (4.60-5.80); Red Cell Distribution Width 13.2 % (11.0-16.0)
[2023-09-23 05:58] LABS: Prothrombin Time 12.2 SEC (11.1-13.3)
--- NOTE | 2023-09-23 06:01 | PC.NURSE ---
pt to ct scan at this time will medicate upon return,.
[2023-09-23 06:07] LABS: Alanine Aminotransferase 33 U/L (0-40); Albumin Level 4.4 g/dL (3.5-5.0); Alkaline Phosphatase 61 U/L (39-117); Anion Gap 14 (12-20); Aspartate Amino Transferase 30 U/L (5-37); Bilirubin Total 0.7 mg/dL (0.0-1.0); Blood Urea Nitrogen 10 mg/dL (9-16); Calcium 9.3 mg/dL (8.4-10.2); Carbon Dioxide 24 mmol/L (22-29); Chloride 106 mmol/L (96-108); Creatinine Clr Calc Pharmacy 76.3; Estimated Glomerular Filt Rate > 60; Glucose Random 116 mg/dL (60-115); Potassium 3.8 mmol/L (3.3-5.1); Sodium 140 mmol/L (135-145); Total Protein 8.1 g/dL (6.5-8.0)
[2023-09-23 06:13] LABS: Troponin-I High Sensitivity 4.8 ng/L (<3.5-35.0)
[2023-09-23] MEDS: ondansetron HCL 4 MG/2 ML VIAL IVPUSH (06:18)
[2023-09-23] MEDS: Morphine Sulfate 4 MG/ML CARTRIDGE IVPUSH (06:18)
[2023-09-23 07:23] VITALS: BP 134/77; PULSE 71; RESP 16; O2SAT 97
== END 2023-09-23 07:39 | disposition home or self-care (01) ==
PROVIDERS: Emergency Provider Internal Medicine
DX: G43.909 Migraine, unspecified, not intractable, without status migrainosus (principal); R11.2 Nausea with vomiting, unspecified; M54.50 Low back pain, unspecified; R07.89 Other chest pain; I10 Essential (primary) hypertension; Z79.899 Other long term (current) drug therapy
CPT/HCPCS: 36415; 70450; 72100; 80053; 84484; 85025; 85610; 93005; 96374; 96375; 99284; 99285; J2270; J2405

== ENCOUNTER → 2023-09-23 05:46 | Outpatient (BNV) | payer SELFPAY | PROVIDERS: Emergency Provider Internal Medicine; Visit Provider Internal Medicine | DX: R51.9 Headache, unspecified (principal) | CPT/HCPCS: 93010 ==

== ENCOUNTER 2023-10-04 14:03 | Emergency (ER) | payer MEDICAID, OTHER, SELFPAY ==
--- NOTE | 2023-10-04 14:56 | ED.URI ---
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 Patient states that over the last 3 days he has had a cough, headache, and chills. Patient denies any dizziness, lightheadedness, abdominal pain, nausea, vomiting, fever, blurry vision, double vision, loss of vision, chest pain, difficulty breathing, shortness of breath, back pain, night sweats, pain with urination, increased urinary frequency, increased urinary urgency, blood in his urine or stool, syncope or a near syncopal episode, recent trauma or falls, bowel incontinence, bladder incontinence, bowel retention, bladder retention, or any other complaints at this time. MD elicited complaint: cough Onset (ago): day(s) (3) Severity: mild Able to tolerate fluids by mouth: Yes Exacerbating factors: nothing Relieving factors: nothing Associated symptoms: chills, headache and cough Treatments prior to arrival: none Related Data Previous Rx's Medication Instructions Recorded oxycodone 5 mg tablet 5 mg PO Q8H PRN pain #7 tabs 12/30/22 hxutxanryh-gnbuwxvuegwef-xokzrnwc 1 tab PO Q6H PRN haeadace #20 tabs 09/23/23 50 mg-325 mg-40 mg tablet tramadol 50 mg tablet 50 mg PO Q6H PRN pain #20 tabs 09/23/23 benzonatate 100 mg capsule 100 mg PO BID PRN cough 7 days #14 10/04/23 caps oseltamivir 75 mg capsule (Tamiflu) 75 mg PO DAILY 5 days #5 caps 10/04/23 Allergies Allergy/AdvReac Type Severity Reaction Status Date / Time No Known Allergies Allergy Verified 10/04/23 14:53 Review of Systems Constitutional: Constitutional: Reports no additional constitutional complaints, Reports chills, Denies fever(s), Reports headache(s) and Denies night sweats Eyes: Eyes: Reports no additional eye complaints, Denies blurry vision, Denies change in vision, Denies diplopia, Denies eye discharge, Denies loss of vision and Denies eye pain ENT: Denies dizziness and Reports headache(s) Cardiovascular: Cardiovascular: Reports no additional cardiovascular complaints, Denies chest pain, Denies lightheadedness, Denies Loss of Consciousness and Denies dyspnea Respiratory: Respiratory: Reports no additional respiratory complaints, Reports cough and Denies dyspnea Gastrointestinal: Gastrointestinal: Reports no additional gastrointestinal complaints, Denies abdominal pain, Denies melena, Denies hematochezia, Denies change in bowel habits and Denies change in stool character Genitourinary: Genitourinary: Reports no additional male genitourinary complaints, Denies hematuria, Denies oliguria, Denies difficulty urinating, Denies dysuria, Denies urinary frequency, Denies urinary hesitancy, Denies urinary incontinence and Denies urinary urgency Musculoskeletal: Musculoskeletal: Reports no additional musculoskeletal complaints, Denies numbness and Denies tingling Neurologic: Denies dizziness, Reports headache(s), Denies loss of vision, Denies numbness and Denies tingling Psychiatric: Psychiatric: Reports no additional psychiatric complaints Endocrine: Endocrine: Reports no additional endocrine complaints Hematologic/Lymphatic: Hematologic/Lymphatic: Reports no additional hematologic/lymphatic complaints Allergic/Immunologic: Allergic/Immunologic: Reports no additional allergic/immunologic complaints PMFSH Past Medical History Attestation statement: The following information was validated with the patient. Source: old records reviewed and nursing notes reviewed Onset Date is defined in the Problem List Problems that require an onset date and time if occurred within 24 hrs of arrival to the ED Aortic Dissection and Rupture; Neurologic impairment; Cardiopulmonary Arrest; Endotracheal Intubation; Insertion or Replacement of Mechanical Circulatory Assist Device Medical History Diverticular hemorrhage Diverticulitis Social History Social History Alcohol intake: never Advance Directives: No Advance Directives Information Provided: No Physical Exam Vital Signs: Vital Signs: Last Vital Signs Temp 100.5 F H 10/04/23 14:57 Pulse 105 H 10/04/23 14:57 Resp 18 10/04/23 14:57 BP 155/92 H 10/04/23 14:57 Pulse Ox 96 10/04/23 14:57 O2 Del Method Room Air 10/04/23 14:57 BMI result Body Mass Index 39.2 Const: General: cooperative, no acute distress, alert and awake Nutritional Appearance: well nourished Orientation/consciousness: patient oriented x3 Limitations: no limitations HEENT: Head: Yes normal to inspection and Yes atraumatic Ears: hearing grossly normal bilaterally and external ears normal General nose exam: Normal external nose present, no nasal discharge noted and no epistaxis Face and sinus: Yes normal facial exam, No abrasion and No laceration Mouth: Normal oral and palatal mucosa present, no drooling and no muffled voice Eyes: General: appearance normal, both eyes and all related structures Periorbital: periorbital findings normal Eyelids: Yes eyelids normal Conjunctivae: conjunctivae normal Pupils: Equal, round and reactive pupils present EOM: EOMs intact bilaterally Neck: Neck: Yes normal visual inspection, Yes full ROM and Yes no lymphadenopathy Chest: Chest palpation & inspection: normal inspection of the chest Resp: Effort & Inspection: normal respiratory effort and able to speak in complete sentences GI: Inspection: Yes normal to inspection Neuro: General: patient oriented x3 and moves all extremities Cranial nerves: Yes Equal, round and reactive pupils present Cognition (Neuro): normal cognition Motor exam (neuro): 5/5 motor strength present throughout Sensory Exam: Normal double simultaneous stimulation for sensation Coordination: nufykp-pt-qdtc test normal Extrem: General: Yes normal to inspection, Yes full ROM and Yes capillary refill normal Psych: Appearance: grossly normal Mental Status: mental status grossly normal Affect: normal affect Attitude: cooperative Thought process: Normal thought process present Thought content: Normal thought content present Insight: Good insight present (Psych) Course Course Course Narrative: This is a rapid medical exam. Deferred additional HPI, ROS, PE to primary provider. 67 yo male with history of GIB, asthma here with complaints of cough, abdominal pain, fevers, chills, poor appetite, headache, chest discomfort with coughing x 3 days. Will obtain CXR, viral testing VSS Medications Administered Discontinued Medications Generic Name Dose Route Start Last Admin Trade Name Freq PRN Reason Stop Dose Admin Acetaminophen 975 mg 10/04/23 14:59 10/04/23 15:52 Acetaminophen 325 Mg Tablet PO 10/04/23 15:00 975 mg ONCE ONE Administration Benzonatate 200 mg 10/04/23 16:33 10/04/23 16:50 Benzonatate 100 Mg Capsule PO 10/04/23 16:34 200 mg ONCE ONE Administration Medical Decision Making Medical Decision Making [facility] Narrative: Patient is a 67 year old assigned male at with no reported medical history presenting to the emergency department today with chills, headache, and cough. Patient's physical exam was unremarkable. Patient's chest x-ray showed no acute process. Patient's COVID-19 and RSV tests were negative. Patient's influenza test was positive. I explained my physical exam findings as well as all test results to the patient. I answered all questions asked by the patient. I stressed the importance of the patient taking his medication as prescribed. I stressed the importance of the patient following up with his primary care provider. I stressed the importance of the patient returning to the emergency department immediately if his symptoms were to worsen or if he were to develop any dizziness, shortness of breath, difficulty breathing, chest pain, blurry vision, loss of vision, nausea, vomiting, abdominal pain, fever, chills, back pain, or any other complaints. Patient verbalized agreement and understanding with this treatment plan and discharge. Differential Diagnosis Differential Diagnoses: The differential diagnosis associated with the presentation includes Influenza COVID-19 RSV PNA URI Admission/Observation Consideration of admission/observation: Escalation of care including admission/observation considered Patient would have been admitted to the hospital had his work up had any findings where hospital admission was appropriate and his clinical presentation warranted hospital admission. Lab Data [facility] Lab Attestation statement: I reviewed the patient's lab results. My interpretation of these results are in the [facility] Rationale portion of this note. Labs: Lab Results 10/04/23 Range/Units 15:32 Influenza Type A (PCR) POSITIVE A (Negative) Influenza Type B (PCR) NEGATIVE (Negative) RSV RNA Qual (PCR) NEGATIVE (Negative) SARS-CoV-2 RNA (RT-PCR) NEGATIVE (Negative) Independent Interpretation I performed an independent interpretation of an: Plain X-Ray Interpretation: My interpretation is in agreement with the radiologist's impression of this imaging study. EXAMINATION: XR CHEST CLINICAL INFORMATION: Cough. COMPARISON: None available. TECHNIQUE: 2 views of the chest were obtained. FINDINGS: The lungs are fairly well-expanded and clear. Heart size and pulmonary vascularity is normal. XR/XR chest 2V IMPRESSION: Unremarkable chest exam. Dictated By: Taz Ortega MD Signed By: Electronically signed by Taz Ortega MD 10/04/23 7839 Radiology Impression Discussion of test interpretation with radiology: I have reviewed the radiologist's reading. Prescription Management I considered prescription management with: Antiviral (patient prescribed tamiflu.) Discharge Plan Discharge Clinical Impression: Influenza Patient Disposition: Home, Self-Care Instructions: Influenza (DC) Additional Instructions: Follow up with your primary care provider. Return to the emergency department immediately if your symptoms worsen or if you develop any dizziness, shortness of breath, difficulty breathing, chest pain, blurry vision, loss of vision, nausea, vomiting, abdominal pain, fever, chills, back pain, or any other complaints. Cata un seguimiento con yen proveedor de atenci?n primaria. Regrese al departamento de emergencias inmediatamente si ronnie s?ntomas empeoran o si presenta mareos, dificultad para respirar, dificultad para respirar, dolor en el pecho, visi?n borrosa, p?rdida de la visi?n, n?useas, v?mitos, dolor abdominal, fiebre, escalofr?os, dolor de espalda o cualquier otras quejas. Prescriptions: New benzonatate 100 mg capsule 100 mg PO BID PRN (Reason: cough) 7 Days Qty: 14 0RF oseltamivir [Tamiflu] 75 mg capsule 75 mg PO DAILY 5 Days Qty: 5 0RF No Action oxycodone 5 mg tablet 5 mg PO Q8H PRN (Reason: pain) Qty: 7 0RF Rx Instructions: Partial Fill upon patient request. tramadol 50 mg tablet 50 mg PO Q6H PRN (Reason: pain) Qty: 20 0RF vzsakctcae-reorgntsqihja-xthp 50-325-40 mg tablet 1 tab PO Q6H PRN (Reason: haeadace) Qty: 20 0RF Referrals: [facility] [Provider Group] (Call to establish and follow up with a primary care provider. If you already have a primary care provider, please follow up with them. Llame para establecer y realizar un seguimiento con un proveedor de atenci?n primaria. Si ya tiene un proveedor de atenci?n primaria, cata un seguimiento con ?l. ) [facility] [Provider Group] (Call to establish and follow up with a primary care provider. If you already have a primary care provider, please follow up with them. Llame para establecer y realizar un seguimiento con un proveedor de atenci?n primaria. Si ya tiene un proveedor de atenci?n primaria, cata un seguimiento con ?l. ) [facility] [Provider Group] (Call to establish and follow up with a primary care provider. If you already have a primary care provider, please follow up with them. Llame para establecer y realizar un seguimiento con un proveedor de atenci?n primaria. Si ya tiene un proveedor de atenci?n primaria, cata un seguimiento con ?l. ) Interventions: ED Discharge Assessment Last Done: 10/04/23 16:53 Discharge Date/Time: 10/04/23 16:55 Print Language: English
[2023-10-04 14:57] VITALS: BP 155/92; PULSE 105; RESP 18; TEMP 38.1; O2SAT 96; BMI 39.2
== END 2023-10-04 16:55 | disposition home or self-care (01) ==
PROVIDERS: Emergency Provider Student in an Organized Health Care Education/Training Program
DX: J02.0 Streptococcal pharyngitis (principal); Z20.822 Contact with and (suspected) exposure to COVID-19; Z20.828 Contact with and (suspected) exposure to other viral communicable diseases; R05.9 Cough, unspecified
CPT/HCPCS: 0241U; 71046; 99283

== ENCOUNTER 2025-04-15 08:39 | Day surgery (SDC) | payer SELFPAY ==
--- OUTSIDE RECORDS SUMMARY | 2021-11-15 10:30 | XMS_ITS | Continuity of Care Document ---
Author Organization [facility] Address [address] [place] [address] Phone Care Team Providers Care Embedded Software Developer Name Role Phone Ana Zavala PA-C Unavailable Unavailab le Allergies, Adverse Reactions, Alerts Substance Reaction Status Criticality Penicillins HivesHives Active No Information Procedures Procedure Date Office/Outpatient visit, established pat ient Betamethasone acet&sod phosp Injection(s); single tendon sheath, or l igament, aponeurosis Office/Outpatient visit, new patient Aug Advance Directives Directive Yes / No Effective Date File Name No Information Encounters Encounter Description Practice Location Reason(s) For Visit Diagnoses Date Provider Providers Copied on Encounter Office/Outpat ient visit, established patient [facility], [address] [place], [place], [id number], [place] tel:[phone] [facility] Radial styloid tenosynovitis [de Quervain] [address] Zav[address] Ana. [address] [place], [place], [id number], [place]. tel:[phone] Referring Provider: Glendy Mauricio, [address] [place], [address]. tel:[phone] [facility], [address], [place], [id number], tel:[phone] [facility] Radial styloid tenosynovitis [de Quervain] 2 Zavala Ana. [address] [place], [place], [id number], [place]. tel:[phone] Referring Provider: Glendy Mauricio, [address] [place] [address], [address]. tel:[phone] Office/Outpat ient visit, new patient [facility], [address], [place], [id number], tel:[phone] [facility] right wrist pain (chief complaint) Radial styloid tenosynovitis [de Quervain] 1 Sylwia Juarez. [address], [place], [id number], [place]. tel:[phone] Referring Provider: Glendy Mauricio, [address] [place] [address], [address]. tel:[phone] Family History Family Member Type Diagnosis Age At Onset No Information Payers Payer name Insurance type Covered green party ID [id number] Social History Type Description Quantity Date Captured Comments Alcohol Use Details No Caffeine Use Details Unknown Tobacco Use Status No Information Smoking Status Never smoker Sex Male Vital Signs Date / Time: Height Weight BMI Pulse Rate Blood Pressure Temperature Respiratory Rate Body Surface Area Head Circumference Head Circ. Percentile Wt./Lambert. Percentile BMI percentile Pulse Ox Inhaled Ox 2:30 PM 65.00 in 80.286 kg (177.00 lbs) 29.4 5 kg/m eter (2) 96 /min 146/98 mm[Hg] Chief Complaint And Reason For Visit No Information Reason For Referral Reason For Referral No Information History Of Present Illness Encounter Date Complaint History Of Prese nt Illness right wrist pain Juan F Angulo is a 65 year old male. He presents with pain, weakness and swelling on the right side. He indicates the injury occurred at work. He is on Worker's Comp. The symptoms occur intermittently. Currently the patient states that the symptoms are moderate. He rates his current pain as 7/10. The symptoms are aggravated by daily activities. Juan F states that the symptoms are relieved by rest. He has had a brace or splint. Patient has had previous therapy. He has not returned to work. right wrist pain (comments) Mr. Angulo is a 65-year-old thudk-oxhb-dahhbzkb gentleman who comes to my office today at the request of Dr. Love for evaluation of pain in the radial aspect of the right wrist. The patient states that the repeated activities of his job contributed to the ongoing pain however, he does remember a incident at work when he was manipulating a machine that was very stiff and during the activities of pulling and lifting the lever, he experienced significant worsening of pain. Since then, his pain has been localized over the radial aspect of the right wrist. It can be assessed 7/10 with activity. He does not take medication for the pain. He has obtained treatment with splinting and physical therapy. Neither of those 2 modalities have given him any improvement in his pain. He comes to my office today for evaluation and to discuss recommendations regarding definitive treatment so that he can return to his activities of work in the shortest period of time and without discomfort. Functional Status Date Functional Assessmen t No Information Instructions Date Instruction Additional Infor margy The patient is recom mended to return to activities of daily living and work. We have discussed that there is a possibility of recurrence of these tendinitis. Should this occur, the patient have access to reevaluation, conservative treatment, and if need be surgical intervention. Related to Radial styloid tenosynovitis [de Quervain] At this time, the pa fernanda has been explained that he is still a candidate for aggressive conservative management with a steroid injection. He agrees with that recommendation. Authorization will be requested for a steroid injection to be given in the right first dorsal compartment. He will then be given an appointment 6 weeks later. If during his reevaluation, there is evidence of adequate resolution of the pain, he will be able to return to his primary treating physician for continuation of care and to undergo permanent and stationary evaluation. If however, the patient experiences no relief of pain or he experiences a short-lived temporary resolution of pain followed by recurrence, additional treatment including surgical intervention will need to be discussed and the appropriate authorization obtained before he can return to her primary treating physician for permanent and stationary evaluation. Related to Radial styloid tenosynovitis [de Quervain] Assessments Type Assessment Date assessment Radial styloid tenosynovitis [de Quervain] impression Right de Quervain's tenosynovitis currently improved after steroid injection Patient Care Teams Name Effective Dates (start - stop) Status Members No Information
[2025-04-15] VITALS (10 sets, daily range): BP systolic 143–192; BP diastolic 89–99; PULSE 53–82; RESP 16–20; TEMP 36.3–36.9; O2SAT 95–100; BMI 26.9
--- NOTE | ~2025-04-15 | CT_ITS ---
EXAMINATION: CT ABDOMEN AND PELVIS WITH CONTRAST CLINICAL INFORMATION: Left inguinal hernia, concern for strangulation COMPARISON: March 12, 2023. DLP: 400 mGY*cm TECHNIQUE: Multidetector volumetric images were obtained from the superior aspect of the liver through the pubic symphysis following administration 85 mL of Omnipaque 350 intravenous contrast. Sagittal and coronal reformatted images were obtained on the technologist's workstation. Oral contrast: No This CT examination was performed using dose optimization techniques as appropriate, variously including the following: *Automated exposure control *Adjustment of mA and/or kV according to patient size (this includes techniques or standardized protocols for targeted exams where dose is matched to indication/reason for exam; i.e. extremities or head) *Use of iterative reconstruction technique FINDINGS: LUNG BASES: The visualized lung bases are unremarkable. LIVER, GALLBLADDER, AND BILIARY TREE: The liver is normal in size, shape, and attenuation. No focal hepatic lesion or biliary ductal dilatation is present. The gallbladder is unremarkable with no evidence of radiopaque gallstones, gallbladder wall thickening, or obvious pericholecystic inflammatory changes. PANCREAS: Unremarkable. SPLEEN: Unremarkable. ADRENAL GLANDS: Unremarkable. KIDNEYS AND URETERS: Partially exophytic benign simple renal cyst measuring 3.5 cm in the upper pole the left kidney is stable. BLADDER: Unremarkable. GASTROINTESTINAL TRACT: Innumerable pseudodiverticula are present throughout the colon. There is a left inguinal indirect hernia containing approximately 20 cm length of the descending-sigmoid colon junction. Hernia sac is not completely covered by the [id number] of the scan transversely, the hernia sac measures 5.0 x 5.2 cm (AP by transverse). The CC dimension of the hernia sac is greater than 8.3 cm. There is mild fat stranding in the herniated mesentery. The herniated bowel does not appear thick walled. Normal appendix is visualized. LYMPH NODES: Normal. VASCULAR: Unremarkable. PELVIC VISCERA: Prostate enlargement is again noted. OSSEOUS STRUCTURES: L5-S1 demonstrates chronic pars intraarticularis defect with grade 1 anterolisthesis and vacuum phenomena. CT/CT abdomen pelvis w IV con IMPRESSION: Again seen is a indirect left inguinal hernia. Previously, a contained only mesentery. On the current examination, it contains at least 20 cm length of colon at the descending sigmoid junction. There is mild fat stranding of the mesentery without bowel wall thickening or proximal obstruction. Again noted are innumerable pseudodiverticula involving the entirety of the colon. L5-S1 demonstrates chronic pars intraarticularis defect with grade 1 anterolisthesis and advanced degenerative disc disease. Fleischner guidelines were followed. Electronically signed by: Ritesh Leon MD 04/15/2025 10:59 AM EDT
--- NOTE | 2025-04-15 09:08 | ED_ITS ---
HPI - Abdominal Pain General Chief Complaint: Abdominal Pain Stated Complaint: vomiting, possible hernia with pain Time Seen by Provider: 04/15/25 08:46 Source: patient and family Mode of arrival: ambulatory Limitations: language barrier History of Present Illness ED Provider: HPI narrative: This is a 69-year-old male, daughter reports that he has left inguinal hernia that he is able to reduce since yesterday he night he was afebrile in the ER, he is complaining of left inguinal area pain Related Data Previous Rx's ?Medication ?Instructions ?Recorded oxycodone 5 mg tablet 5 mg PO Q8H PRN pain #7 tabs 12/30/22 [id number]-[id number] 1 tab PO Q6H PRN hae adace #20 tabs 09/23/23 50 mg-325 mg-40 mg tablet tramadol 50 mg tablet 50 mg PO Q6H PRN pain #20 ta bs 09/23/23 benzonatate 100 mg capsule 100 mg PO BID PRN cough 7 d ays #14 10/04/23 caps oseltamivir 75 mg capsule (Tamiflu) 75 mg PO DAILY 5 d ays #5 caps 10/04/23 Allergies Allergy/AdvReac Type Severity Reaction Status Date / Time No Known Allergies Allergy Verified 04/15/25 08:52 Review of Systems Constitutional: Reports as per HPI [facility] Past Medical History Medical History Diverticular hemorrhage Diverticulitis Social History Social History Alcohol intake: never Smoked in Last 30 Days: No Use of substances other than those prescribed or required for medical reasons: No Advance Directives: No Advance Directives Information Provided: Yes Do you have a plan to hurt others: No Plan Physical Exam ED Vital Signs: Vital Signs - 24 hr 04/15/25 08:47 04/15/25 11:59 04/15/25 12:47 Temperature 98 F 97.6 F Pulse Rate 81 57 58 Respiratory Rate 17 17 19 Blood Pressure 181/95 H 181/93 H 181/94 H Pulse Oximetry 98 100 98 Oxygen Delivery Method Room Air BMI result Body Mass Index 26.9 Const Other: * Gen: ?Overall well-appearing patient * HEENT: PERRLA, EOMI, MMM, * Neck: Supple, no LAD * CV: RRR, no obvious murmurs appreciated * Resp: ?No wheezing rales rhonchi no stridor moving air well * Abd: ?Bowel sounds are present, he has obvious left inguinal hernia with fullness in the left testicle tender, the rest of the penile examination and testicles is unremarkable * MSK: FROM, strength 5/5 all extremities * Skin: Warm, dry, intact, * Neuro: ?Alert and oriented x3, moving upper and lower extremities symmetrically, no obvious facial asymmetry noted Medical Decision Making Medical Decision Making [facility] Narrative: Presenting with nausea, vomiting pain in the left inguinal area with obvious inguinal hernia, we will obtain CT to evaluate for incarceration or strangulation, he usually is able to reduce it I am not able to reduce it at bedside we will obtain CT without oral contrast S to expedite his care, he has been having symptoms since yesterday, I gently tried to reduce the area but in case this incarcerated with the got ischemia would hold off on actively trying to reduce it. 11:44 consulted surgery, he is still symptomatic but CT without any evidence of incarceration or SBO 13:19 patient continues to be symptomatic due to a inguinal hernia, we will be going to the OR today. Differential Diagnosis Differential Diagnoses: The differential diagnosis associated with the presentation includes Incarcerated hernia, strangulated hernia, SBO, UTI, pneumonia, viral infection Admission/Observation Consideration of admission/observation: Escalation of care including admission/observation considered 2022 Emergency Medicine Coding Guide from [employer] on 04/15/2025 All calculations should be rechecked by clinician prior to use RESULT SUMMARY: 5 Estimated Level of Service Problems: Moderate (4) Risk: High (5) Data: Extensive (5) NARRATIVE MDM: This patient's problem complexity is Moderate as patient: has a new undiagnosed problem with uncertain prognosis but that could be serious. This patient's risk is High due to: overall presentation requiring evaluation for a potentially High-risk process. This patient's data complexity is Extensive due to: -multiple tests ordered/reviewed -external notes reviewed -independent interpretation of imaging or EKG -discussion of management/testing with external professional INPUTS: Number and Complexity ?> 5 = 4: undiagnosed new problem, uncertain outcome (e) Risk level ?> 4 = High Tests ordered ?> 3 = >= Tests results reviewed (excluding labs) ?> 3 = >= Prior external notes reviewed ?> 3 = >= Assessment requiring and independent historian ?> 0 = No Independent interpretation of tests ?> 1 = Yes Discussed management/test interpretation w/external professional ?> 1 = Yes Consult Healthcare Provider Management of the patient was discussed with: Manager Reliability (Dr. Bear) Lab Data MDM Lab Attestation statement: I reviewed the patient's lab results. 04/15/25 09:18 04/15/25 09:18 Labs: Lab Results 04/15/25 04/15/25 04/15/25 Range/Units 09:18 09:29 09:49 WBC 6.3 (4.8-10.8) X10*3/uL RBC 4.83 (4.60-5.80) X10*6/uL Hgb 9.1 L D (14.0-18.0) g/dl Hct 30.8 L D (42.0-52.0) % MCV 63.8 L (80.0-98.0) fL MCH 18.8 L (27.0-33.0) pg MCHC 29.5 L (31.0-36.0) g/dl RDW 18.7 H (11.0-16.0) % Plt Count 225 D (160-400) X10*3/uL MPV 9.4 (9.4-12.4) fL Immature Gran % (Auto) 0.2 (0.0-0.4) % Neut % (Auto) 37.2 L (45-73) % Lymph % (Auto) 32.4 (20-40) % Ward % (Auto) 9.3 (2-11) % Eos % (Auto) 20.1 H (0-4) % Baso % (Auto) 0.8 (0-2) % Lymph # (Auto) 2.0 (1.2-4.9) X10*3/uL Ward # (Auto) 0.6 (0.1-1.2) X10*3/uL Eos # (Auto) 1.3 H (0.0-0.4) X10*3/uL Baso # (Auto) 0.1 (0.0-0.2) X10*3/uL Abs Immat Gran (auto) 0.01 (0.00-0.03) X10*3/uL Absolute Neuts (auto) 2.3 (2.0-8.3) x10*3/uL Absolute Nucleated RBC 0.000 (0.0-0.012) X10*3/uL Nucleated RBC % (auto) 0.0 (0.0-0.2) /100WBC Smear Tech's Comments VERIFIED Sodium 143 (135-145) mmol/L Potassium 3.2 L (3.3-5.1) mmol/L Chloride 109 H (96-108) mmol/L Carbon Dioxide 27 (22-29) mmol/L Anion Gap 10 L (12-20) BUN 12 (9-16) mg/dL Creatinine 1.05 (0.5-1.4) mg/dL Estim Creat Clear Calc 59.6 Estimated GFR > 60 Random Glucose 131 H (60-115) mg/dL Lactic Acid 1.3 (0.5-2.0) mmol/L Calcium 9.0 (8.4-10.2) mg/dL Total Bilirubin 0.3 (0.0-1.0) mg/dL AST 22 (5-37) U/L ALT 13 (0-40) U/L Alkaline Phosphatase 61 (39-117) U/L Total Protein 7.3 (6.5-8.0) g/dL Albumin 4.5 (3.5-5.0) g/dL Lipase 31 (8-78) U/L Urine Color Yellow Urine Appearance Turbid Urine pH 7.5 (5.0-9.0) Ur Specific [place] 1.015 (1.005-1.025) Urine Protein Negative (Neg-Trace) mg/dL Urine Glucose (UA) Negative (Negative) mg/dL Urine Ketones Negative (Negative) mg/dL Urine Blood Negative (Negative) Urine Nitrite Negative (Negative) Ur Leukocyte Esterase Trace H (Negative) Urine RBC 0-2 (0-2) /HPF Urine WBC 0-5 (0-5) /HPF Ur Squamous Epith Cells 0-2 (0-2) /HPF Urine Bacteria None Seen (None Seen) Hyaline Casts 0-2 (0-2) /LPF Influenza Type A (PCR) NEGATIVE (Negative) Influenza Type B (PCR) NEGATIVE (Negative) RSV RNA Qual (PCR) NEGATIVE (Negative) SARS-CoV-2 RNA (RT-PCR) NEGATIVE (Negative) Blood Type Antibody Screen 04/15/25 Range/Units 10:51 WBC (4.8-10.8) X10*3/uL RBC (4.60-5.80) X10*6/uL Hgb (14.0-18.0) g/dl Hct (42.0-52.0) % MCV (80.0-98.0) fL MCH (27.0-33.0) pg MCHC (31.0-36.0) g/dl RDW (11.0-16.0) % Plt Count (160-400) X10*3/uL MPV (9.4-12.4) fL Immature Gran % (Auto) (0.0-0.4) % Neut % (Auto) (45-73) % Lymph % (Auto) (20-40) % Ward % (Auto) (2-11) % Eos % (Auto) (0-4) % Baso % (Auto) (0-2) % Lymph # (Auto) (1.2-4.9) X10*3/uL Ward # (Auto) (0.1-1.2) X10*3/uL Eos # (Auto) (0.0-0.4) X10*3/uL Baso # (Auto) (0.0-0.2) X10*3/uL Abs Immat Gran (auto) (0.00-0.03) X10*3/uL Absolute Neuts (auto) (2.0-8.3) x10*3/uL Absolute Nucleated RBC (0.0-0.012) X10*3/uL Nucleated RBC % (auto) (0.0-0.2) /100WBC Smear Tech's Comments Sodium (135-145) mmol/L Potassium (3.3-5.1) mmol/L Chloride (96-108) mmol/L Carbon Dioxide (22-29) mmol/L Anion Gap (12-20) BUN (9-16) mg/dL Creatinine (0.5-1.4) mg/dL Estim Creat Clear Calc Estimated GFR Random Glucose (60-115) mg/dL Lactic Acid (0.5-2.0) mmol/L Calcium (8.4-10.2) mg/dL Total Bilirubin (0.0-1.0) mg/dL AST (5-37) U/L ALT (0-40) U/L Alkaline Phosphatase (39-117) U/L Total Protein (6.5-8.0) g/dL Albumin (3.5-5.0) g/dL Lipase (8-78) U/L Urine Color Urine Appearance Urine pH (5.0-9.0) Ur Specific [place] (1.005-1.025) Urine Protein (Neg-Trace) mg/dL Urine Glucose (UA) (Negative) mg/dL Urine Ketones (Negative) mg/dL Urine Blood (Negative) Urine Nitrite (Negative) Ur Leukocyte Esterase (Negative) Urine RBC (0-2) /HPF Urine WBC (0-5) /HPF Ur Squamous Epith Cells (0-2) /HPF Urine Bacteria (None Seen) Hyaline Casts (0-2) /LPF Influenza Type A (PCR) (Negative) Influenza Type B (PCR) (Negative) RSV RNA Qual (PCR) (Negative) SARS-CoV-2 RNA (RT-PCR) (Negative) Blood Type O Positive Antibody Screen NEGATIVE Radiology Impression Discussion of test interpretation with radiology: I have reviewed the radiologist's reading. ( CT/CT abdomen pelvis w IV con IMPRESSION: Again seen is a indirect left inguinal hernia. Previously, a contained only mesentery. On the current examination, it contains at least 20 cm length of colon at the descending sigmoid junction. There is mild fat stranding of the mesente) Independent Historian Clinical information obtained from an independent historian. History obtained from or confirmed by: Other (daughter) Medications Administered Discontinued Medications Generic Name Dose Route Start Last Admin Trade Name Freq PRN Reason Stop Dose Admin Famotidine 20 mg 04/15/25 09:08 04/15/25 09:25 Famotidine/Pf 20 Mg/2 Ml Vial IVPUSH 04/15/25 09:09 20 mg ONCE ONE Administration Sodium Chloride 1,000 mls @ 999 mls/hr 04/15/25 09:15 04/15/25 10:33 Ns IV 04/15/25 10:15 Infused .Q1H1M MESSI Infusion Iohexol 100 ml 04/15/25 10:37 04/15/25 10:37 Iohexol 350 Mg/Ml 100 Ml Infus..Btl IV 04/15/25 10:38 85 ml ONCE ONE Administration Ketorolac Tromethamine 15 mg 04/15/25 09:08 04/15/25 09:25 Ketorolac Tromethamine 15 Mg/Ml Vial IM 04/15/25 09:09 15 mg ONCE ONE Administration Ketorolac Tromethamine 15 mg 04/15/25 11:44 04/15/25 11:56 Ketorolac Tromethamine 15 Mg/Ml Vial IVPUSH 04/15/25 11:45 15 mg ONCE ONE Administration Morphine Sulfate 4 mg 04/15/25 11:44 04/15/25 11:56 Morphine Sulfate 4 Mg/Ml Cartridge IVPUSH 04/15/25 11:45 4 mg ONCE ONE Administration Protocol Ondansetron HCl 4 mg 04/15/25 09:08 04/15/25 09:24 Ondansetron Hcl 4 Mg/2 Ml Vial IVPUSH 04/15/25 09:09 4 mg ONCE ONE Administration Critical Care Time Critical Care Time Total Critical Care Time: 45 Attestation: Time is exclusive of separately billable procedures. Time includes: direct patient care, patient reassessment, coordination of patient care, interpretation of data (laboratory data, pulse oximetry, arterial blood gases and chest xrays), review of patient's medical records, medical consultation and documentation of patient care. Procedures excluded from critical care time: central intravenous line placement and electrocardiography. Discharge Plan Discharge Clinical Impression: Indirect right inguinal hernia Patient Disposition: Admitted As Inpatient Print Language: Lithuanian
--- NOTE | 2025-04-15 09:09 | ECG_ITS ---
Test Reason : WEAKNESS Blood Pressure : */* mmHG Vent. Rate : 59 BPM Atrial Rate : 59 BPM P-R Int : 168 ms QRS Dur : 106 ms QT Int : 408 ms P-R-T Axes : 36 -5 17 degrees QTcB Int : 403 ms Sinus bradycardia Otherwise normal ECG When compared with ECG of 23-Sep-2023 05:46, No significant change was found Referred By: Anders Ovalle Electronically Signed By: CLARK LOCKHART
--- OUTSIDE RECORDS SUMMARY | 2025-04-15 09:17 | XMS_ITS | Clinical Summary ---
Author Organization [facility] Address [address] [place] [address] Care Team Providers Care Stave Hewer Name Role Phone Unknown Primary Care Provider [phone] -[phone] Allergies No known active allergies Medications Ascorbic Acid (VITAMIN C PO) Take 1 tablet by mouth daily. Active cholecalciferol (CHOLECALCIFERO L) 25 MCG (1000 UT) tablet Take 1 tablet (1,000 Units total) by mouth daily. Active [place]-3-6-9 Cap Take 1 capsule by mouth daily. Active CINNAMON PO Take 1 tablet by mouth daily. Active losartan-hydroC HLOROthiazide (HYZAAR) 100-25 MG per tabletIndicatio ns:GI bleed,Acute blood loss anemia (ABLA) Take 1 tablet by mouth daily. 90 tablet 03/15/2023 Active ferrous sulfate 325 (65 FE) MG EC tabletIndicatio ns:GI bleed,Acute blood loss anemia (ABLA) Take 1 tablet (325 mg total) by mouth daily. Take 2 hours before or 4 hours after acid reducers. 30 tablet 03/15/2023 Active PANTOprazole (PROTONIX) 40 MG EC tabletIndicatio ns:GI bleed,Acute blood loss anemia (ABLA) Take 1 tablet (40 mg total) by mouth every morning before breakfast. 30 tablet 03/15/2023 Active Active Problems Problem Noted Date Diagnosed Date Acute blood loss anemia (ABLA) 03/13/2023 Social History Tobacco Use Types Packs/Day Years Used Date Smoking Tobacco: Never Smokeless Tobacco: Never Tobacco Cessation:Counseling Given: Not Answered AUDIT-C Answer Date Recorded Q1: How often do you have a drink containing alcohol? Never 03/13/2023 Q2: How many drinks containi ng alcohol do you have on a typical day when you are drinking? Patient does not drink Q3: How often do you have si x or more drinks on one occasion? Never 03/13/2023 Sex and Gender Information Value Date Recorded Sex Assigned at Male 03/13/2023 8:00 AM EDT Legal Sex Male 1:41 AM EDT Gender Identity Male 03/13/2023 8:00 AM EDT Sexual Orientation Choose not to disclose 2022 8:00 AM EDT Last Filed Vital Signs Vital Sign Reading Time Taken Comments Blood Pressure 141/76 03/15/2023 12:06 PM EDT Pulse 75 03/15/2023 12:06 PM EDT Temperature 36.6 C (97.8 F) 03/15/2023 12:06 PM EDT Respiratory Rate 18 03/15/2023 12:06 PM EDT Oxygen Saturation 100% 03/15/2023 12:06 PM EDT Inhaled Oxygen Concentration - - Weight 78.5 kg (173 lb) 03/13/2023 12:30 PM EDT Height 160 cm (5' 3 ) 03/13/2023 12:30 PM EDT Body Mass Index 30.65 03/13/2023 12:30 PM EDT Plan of Treatment Health Maintenance Due Date Last Done Comments Hepatitis C Virus Screening 1955 DTaP/Tdap/Td Vaccines (1 - Tdap) 1976 Colonoscopy 2002 Pneumococcal Vaccines 50+ (1 of 1 - PCV) 12/16/2007 Zoster (Shingles) Vaccine (1 of 2) 12/16/2007 COVID-19 Vaccine ( - 2023-2 5 season) 2024 Influenza Vaccine 04/29/2025 RSV Vaccine 60 years and old er and Patients (1 - 1-dose 75+ series) 2032 Hepatitis B Vaccines Aged Out No long er eligible based on patient's age to complete this topic Insurance [facility] Advance Directives * Full Code (Latest Code Status on File) Date Activated Date Inactivated Comments 03/13/2023 10:23 AM Question Answer Comments Decision Thoroughly Discussed with: Unable to Di scuss Care Teams Stave Hewer Relationship Specialty Start Date End Date Unknown Unknow Provider Address PCP - General 03/13/23
[2025-04-15 09:25] LABS: Hematocrit 30.8 % (42.0-52.0); Hemoglobin 9.1 g/dl (14.0-18.0); Imm Gran Abs Auto 0.01 X10*3/uL (0.00-0.03); Imm Gran Pct Auto 0.2 % (0.0-0.4); Lymphocytes Absolute Auto 2.0 X10*3/uL (1.2-4.9); MANUAL DIFF FLAG SCAN; Mean Corpuscular HGB Conc 29.5 g/dl (31.0-36.0); Mean Corpuscular Hemoglobin 18.8 pg (27.0-33.0); NRBC Abs Auto 0.000 X10*3/uL (0.0-0.012); NRBC Pct Auto 0.0 /100WBC (0.0-0.2); Platelet Count 225 X10*3/uL (160-400); Red Blood Count 4.83 X10*6/uL (4.60-5.80); SCAN SMEAR FLAG 1; White Blood Count 6.3 X10*3/uL (4.8-10.8)
[2025-04-15 09:27] LABS: Mean Corpuscular Volume 63.8 fL (80.0-98.0)
[2025-04-15 09:37] LABS: Alanine Aminotransferase 13 U/L (0-40); Albumin Level 4.5 g/dL (3.5-5.0); Alkaline Phosphatase 61 U/L (39-117); Anion Gap 10 (12-20); Aspartate Amino Transferase 22 U/L (5-37); Blood Urea Nitrogen 12 mg/dL (9-16); Calcium 9.0 mg/dL (8.4-10.2); Carbon Dioxide 27 mmol/L (22-29); Chloride 109 mmol/L (96-108); Creatinine Clr Calc Pharmacy 59.6; Estimated Glomerular Filt Rate > 60; Lipase 31 U/L (8-78); Potassium 3.2 mmol/L (3.3-5.1); Sodium 143 mmol/L (135-145); Total Protein 7.3 g/dL (6.5-8.0)
[2025-04-15 09:57] LABS: Appearance Urine Turbid; Glucose Urine UA Negative (Negative); PH 7.5 (5.0-9.0); Specific Gravity - Urine 1.015 (1.005-1.025); UMIC TRIGGER UACC YES
[2025-04-15 10:12] LABS: Resp Syncy Virus RNA Qual PCR NEGATIVE (Negative); SARS COV2 PCR INHOUSE NEGATIVE (Negative)
[2025-04-15] MEDS: iohexoL 350 MG/ML 100 ML INFUS..BTL IV (10:37)
--- NOTE | 2025-04-15 12:21 | PM.HPGS ---
History of Present Illness History of Present Illness Date of Service: 04/15/25 <Ramon Polk PA-C - Last Filed: 04/15/25 13:41> 04/15/25 <Porfirio Bear MD - Last Filed: 04/15/25 13:27> Chief complaint: vomiting, possible hernia with pain <Ramon Polk PA-C - Last Filed: 04/15/25 13:41> Narrative: Juan F Franklin is a 69 year old male with a pmhx significant for diverticulitis, left inguinal hernia presenting to the emergency with a 1 day history of lower abdominal pain with associated nausea and vomiting secondary to a large left inguinal hernia. He states that he has known about this hernia for a few years but it has not caused him much pain. His pain is constant, improved with medications but returns as the meds wear off. He has been passing gas and his last bowel movement was this morning. ED provider attempted to reduce this but was only partially successful. On labs he has no leukocytosis, lactate is WNL. He has a mild JUAREZ, likely secondary to vomiting. CT of the abdomen was performed showing a large left inguinal hernia with bowel extending into the scrotum. There is evidence of inflammatory changes suggesting strangulation. He denies fever or chills <Ramon Polk PA-C - Last Filed: 04/15/25 13:41> Review of Systems Review of Systems: Yes all other systems are reviewed and are negative <Ramon Polk PA-C - Last Filed: 04/15/25 13:41> [facility] Past Medical History Medical History: Medical History Diverticular hemorrhage Diverticulitis <Ramon Polk PA-C - Last Filed: 04/15/25 13:41> Social History Social History: Social History Alcohol intake: never Patient Tobacco Use Status: Never used Tobacco <SAL Lindsey Last Filed: 04/15/25 13:41> Meds Allergies/Adverse reactions: Allergies Allergy/AdvReac Type Severity Reaction Status Date / Time No Known Allergies Allergy Verified 04/15/25 08:52 <Ramon Polk PA-C - Last Filed: 04/15/25 13:41> Physical Exam Vital Signs: Vital Signs: Last Vital Signs Temp 97.6 F 04/15/25 11:59 Pulse 57 04/15/25 11:59 Resp 17 04/15/25 11:59 BP 181/93 H 04/15/25 11:59 Pulse Ox 100 04/15/25 11:59 O2 Del Method Room Air 04/15/25 08:47 BMI result Body Mass Index 26.9 <Ramon Polk PA-C - Last Filed: 04/15/25 13:41> Const: General: no acute distress; No comfortable <Ramon Polk PA-C - Last Filed: 04/15/25 13:41> Orientation/consciousness: patient oriented x3 <SAL Lindsey Last Filed: 04/15/25 13:41> Resp: Effort & Inspection: normal respiratory effort and able to speak in complete sentences <Ramon Polk PA-C - Last Filed: 04/15/25 13:41> GI: Other: left inguinal hernia, unable to reduce due to pain <Ramon Polk PA-C - Last Filed: 04/15/25 13:41> Inspection: No distended <SAL Lindsey Last Filed: 04/15/25 13:41> Palpation (GI): Soft to palpation, not firm, Tenderness to palpation present (GI) (tender throughout, most tender in the LLQ at the site of the hernia), Guarding due to palpation present (GI) (voluntary) and not rigid <SAL Lindsey Last Filed: 04/15/25 13:41> Percussion: Yes normal to percussion <Ramon Polk PA-C - Last Filed: 04/15/25 13:41> Neuro: General: patient oriented x3 <SAL Lindsey Last Filed: 04/15/25 13:41> Results Results Labs: Short CBC 04/15/25 Range/Units 09:18 WBC 6.3 (4.8-10.8) X10*3/uL Hgb 9.1 L D (14.0-18.0) g/dl Hct 30.8 L D (42.0-52.0) % Plt Count 225 D (160-400) X10*3/uL BMP 04/15/25 09:18 Sodium 143 Potassium 3.2 L Chloride 109 H Carbon Dioxide 27 BUN 12 Creatinine 1.05 Calcium 9.0 Liver Function 04/15/25 Range/Units 09:18 Total Bilirubin 0.3 (0.0-1.0) mg/dL AST 22 (5-37) U/L ALT 13 (0-40) U/L Alkaline Phosphatase 61 (39-117) U/L Albumin 4.5 (3.5-5.0) g/dL Urine 04/15/25 Range/Units 09:49 Urine Color Yellow Urine Appearance Turbid Urine pH 7.5 (5.0-9.0) Ur Specific [place] 1.015 (1.005-1.025) Urine Protein Negative (Neg-Trace) mg/dL Urine Glucose (UA) Negative (Negative) mg/dL <SAL Lindsey Last Filed: 04/15/25 13:41> Assessment and Plan (1) Left inguinal hernia: Status: Acute <SAL Lindsey Last Filed: 04/15/25 13:41> 69 year old male with a pmhx significant for diverticulitis, left inguinal hernia presenting to the emergency with a 1 day history of lower abdominal pain with associated nausea and vomiting secondary to a large left inguinal hernia. He has a known inguinal hernia but this pain is new. Pain is controlled with medictiton but returns as meds wear off. He is clinically unobstructed, passing gas and bowel movements this morning. On exam he has a large left inguinal hernia that i was unable to reduce due to the patients pain. He was tender throughout the abodmen with the focal point in the LLQ at the hernia site. He was nondistended. Currently his labs are stable, there is evidence of a mild JUAREZ, likely secondary to the patients vomiting. Lactic acid is WNL, and there was no leukocytosis. I reviewed the imaging showing this large hernia with evidence of bowel extending into the srotum. There is additional fat stranding which is concerning for strangulation of the hernia. At this point would like to admit the patient and proceed with repair of this hernia today. Patient is agreeable to surgical intervention. He understands associated risks including, bleeding, infection <SAL Lindsey Last Filed: 04/15/25 13:41> 69 year old male with a pmhx significant for diverticulitis, left inguinal hernia presenting to the emergency with a 1 day history of lower abdominal pain with associated nausea and vomiting secondary to a large left inguinal hernia. He has a known inguinal hernia but this pain is new. Pain is controlled with medictiton but returns as meds wear off. He is clinically unobstructed, passing gas and bowel movements this morning. On exam he has a large left inguinal hernia that i was unable to reduce due to the patients pain. He was tender throughout the abodmen with the focal point in the LLQ at the hernia site. He was nondistended. Currently his labs are stable, there is evidence of a mild JUAREZ, likely secondary to the patients vomiting. Lactic acid is WNL, and there was no leukocytosis. I reviewed the imaging showing this large hernia with evidence of bowel extending into the srotum. There is additional fat stranding which is concerning for strangulation of the hernia. At this point would like to admit the patient and proceed with repair of this hernia today. Patient is agreeable to surgical intervention. He understands associated risks including, bleeding, infection Patient seen and examined independently and I concur with the above assessment and plan. Patient with an incarcerated left inguinal hernia containing sigmoid colon with the associated nausea, vomiting, and abdominal pain. Hernias non reducible and certainly is a concern for strangulation. I reviewed the procedure, risks, and alternatives in detail with the patient and his daughter, Padmini, and he consents to the surgery. He has been added onto the operative schedule for today. <Porfirio Bear MD - Last Filed: 04/15/25 13:27> Quality Stroke Does the patient have a stroke diagnosis?: No <Porfirio Bear MD - Last Filed: 04/15/25 13:27> VTE Prior VTE?: No <Porfirio Bear MD - Last Filed: 04/15/25 13:27> VTE Risk Level:: Surgical - moderate <Porfirio Bear MD - Last Filed: 04/15/25 13:27> VTE Device Contraindication: N/A - Device Ordered <Porfirio Bear MD - Last Filed: 04/15/25 13:27> VTE Drug Contraindication: Treatment Not Indicated <Porfirio Bear MD - Last Filed: 04/15/25 13:27> Procedures Date of Service Date of Service: 04/15/25 <Ramon Polk PA-C - Last Filed: 04/15/25 13:41> 04/15/25 <Porfirio Bear MD - Last Filed: 04/15/25 13:27>
--- NOTE | 2025-04-15 13:30 | HO.ANESPROP2 ---
Documented by User: Renée Gallegos NP 04/15/25 12:58 HPI - Anesthesia Eval Consult details Narrative: 69 yr old male for left Hernia Inguinal, Irreducible. No recent illness. No CP/SOB with moderate activity, including stair climbing. Recently moved from [place], no PCP PMF Active Problems Active Problems: All Active Problems Left inguinal hernia (Acute) Indirect right inguinal hernia (Acute) Past Medical History Medical History Diverticular hemorrhage Diverticulitis Functional capacity: independent ambulation Family History Family history of problems with anesthesia: No Surgical History History of Problems with Anesthesia: No (denies prior surgical, anesthesia hx) Social History Social History Alcohol intake: never Patient Tobacco Use Status: Never used Tobacco Smoked in Last 30 Days: No Use of substances other than those prescribed or required for medical reasons: No Advance Directives: No Advance Directives Information Provided: Yes Do you have a plan to hurt others: No Plan Meds Allergies Allergy/AdvReac Type Severity Reaction Status Date / Time No Known Allergies Allergy Verified 04/15/25 08:52 Exam Height,Weight and Vital Signs: Height 5 ft 3 in Weight 69 kg Last Vital Signs Temp 97.6 F 04/15/25 11:59 Pulse 57 04/15/25 11:59 Resp 17 04/15/25 11:59 BP 181/93 H 04/15/25 11:59 Pulse Ox 100 04/15/25 11:59 O2 Del Method Room Air 04/15/25 08:47 Pertinent Lab Results Pertinent Lab Results: Laboratory Tests 04/15/25 04/15/25 04/15/25 09:18 09:29 09:49 WBC 6.3 RBC 4.83 Hgb 9.1 L D Hct 30.8 L D MCV 63.8 L MCH 18.8 L MCHC 29.5 L RDW 18.7 H Plt Count 225 D MPV 9.4 Immature Gran % (Auto) 0.2 Neut % (Auto) 37.2 L Lymph % (Auto) 32.4 [place] % (Auto) 9.3 Eos % (Auto) 20.1 H Baso % (Auto) 0.8 Lymph # (Auto) 2.0 [place] # (Auto) 0.6 Eos # (Auto) 1.3 H Baso # (Auto) 0.1 Abs Immat Gran (auto) 0.01 Absolute Neuts (auto) 2.3 Absolute Nucleated RBC 0.000 Nucleated RBC % (auto) 0.0 Smear Tech's Comments VERIFIED Sodium 143 Potassium 3.2 L Chloride 109 H Carbon Dioxide 27 Anion Gap 10 L BUN 12 Creatinine 1.05 Estim Creat Clear Calc 59.6 Estimated GFR > 60 Random Glucose 131 H Lactic Acid 1.3 Calcium 9.0 Total Bilirubin 0.3 AST 22 ALT 13 Alkaline Phosphatase 61 Total Protein 7.3 Albumin 4.5 Lipase 31 Urine Color Yellow Urine Appearance Turbid Urine pH 7.5 Ur Specific [place] 1.015 Urine Protein Negative Urine Glucose (UA) Negative Urine Ketones Negative Urine Blood Negative Urine Nitrite Negative Ur Leukocyte Esterase Trace H Urine RBC 0-2 Urine WBC 0-5 Ur Squamous Epith Cells 0-2 Urine Bacteria None Seen Hyaline Casts 0-2 Influenza Type A (PCR) NEGATIVE Influenza Type B (PCR) NEGATIVE RSV RNA Qual (PCR) NEGATIVE SARS-CoV-2 RNA (RT-PCR) NEGATIVE Blood Type Antibody Screen 04/15/25 10:51 WBC RBC Hgb Hct MCV MCH MCHC RDW Plt Count MPV Immature Gran % (Auto) Neut % (Auto) Lymph % (Auto) [place] % (Auto) Eos % (Auto) Baso % (Auto) Lymph # (Auto) [place] # (Auto) Eos # (Auto) Baso # (Auto) Abs Immat Gran (auto) Absolute Neuts (auto) Absolute Nucleated RBC Nucleated RBC % (auto) Smear Tech's Comments Sodium Potassium Chloride Carbon Dioxide Anion Gap BUN Creatinine Estim Creat Clear Calc Estimated GFR Random Glucose Lactic Acid Calcium Total Bilirubin AST ALT Alkaline Phosphatase Total Protein Albumin Lipase Urine Color Urine Appearance Urine pH Ur Specific [place] Urine Protein Urine Glucose (UA) Urine Ketones Urine Blood Urine Nitrite Ur Leukocyte Esterase Urine RBC Urine WBC Ur Squamous Epith Cells Urine Bacteria Hyaline Casts Influenza Type A (PCR) Influenza Type B (PCR) RSV RNA Qual (PCR) SARS-CoV-2 RNA (RT-PCR) Blood Type O Positive Antibody Screen NEGATIVE Narrative Narrative: EKG 04/15/25 Vent. Rate : 59 BPM Atrial Rate : 59 BPM P-R Int : 168 ms QRS Dur : 106 ms QT Int : 408 ms P-R-T Axes : 36 -5 17 degrees QTcB Int : 403 ms Sinus bradycardia Otherwise normal ECG When compared with ECG of 23-Sep-2023 05:46, No significant change was found Airway Mallampati Class: II TM Dist: >3cm Neck ROM: Full Denture: Upper Loose/Missing/Broken Teeth: No Heart: RRR Lungs: CTAB Assessment and Plan Final Anesthetic Review Family History of Problems with Anesthesia: No History of Problems with Anesthesia: No (denies prior surgical, anesthesia hx) Documented by User: Janna Ku DO 04/15/25 14:45 [facility] Past Medical History Medical History Diverticular hemorrhage Diverticulitis Family History Family history of problems with anesthesia: No Surgical History History of Problems with Anesthesia: No Social History Social History Alcohol intake: never Patient Tobacco Use Status: Never used Tobacco Smoked in Last 30 Days: No Use of substances other than those prescribed or required for medical reasons: No Advance Directives: No Advance Directives Information Provided: Yes Do you have a plan to hurt others: No Plan Meds Allergies Allergy/AdvReac Type Severity Reaction Status Date / Time No Known Allergies Allergy Verified 04/15/25 08:52 Exam Exam Date and Time: 04/15/25 1330 Airway Mallampati Class: IV TM Dist: <=3cm Neck ROM: Full Denture: Upper Heart: S1S2 Assessment and Plan Assessment Anesthesia Assessment: Anesthesia Plan Discussed and Chart Reviewed Final Anesthetic Review Family History of Problems with Anesthesia: No History of Problems with Anesthesia: No NPO: Yes ASA Class: II and Emergency Final Preanesthetic Review: No Changes in Pt Med Stat, Meds/Allgs Chart Reviewed, Consent Obtained/Reviewed (business information manager at bedside for translation) and Anes Risks/Benef Reviewed Patient Risk: Low Procedure Risk: Low Anesthetic Plan Anesthetic Plan: GA and Agree w/ Assess. and Plan Disposition: Standard PACU
--- NOTE | 2025-04-15 14:58 | P.OP_ITS ---
Operative Note Operative Note Date of Service: 04/15/25 Narrative: Preoperative diagnosis: Incarcerated left inguinal hernia Postoperative diagnosis: Same Procedure: Repair of incarcerated left inguinal hernia with mesh Surgeon: Porfirio Bear MD Temporary Receptionist: Tiffany Garcia PA-C; Ramon Polk PA-C, JOE Marinelli Anesthesia: General endotracheal Indications for procedure: 69-year-old male patient presenting with a long history of a left inguinal hernia which is now non reducible and causing pain. CT abdomen and pelvis revealed sigmoid colon within the hernia contents. Patient had nausea and vomiting with denied fever or chills. He presents for repair of this large left inguinal hernia. Operative findings: Incarcerated left inguinal hernia containing sigmoid colon Specimen: Hernia sac and lipoma of the cord left side Estimated blood loss: 10 mL Complications: None Procedure details: Patient was brought to the OR and placed in a supine position. After administering general anesthesia the patient's abdomen was prepped with ChloraPrep and draped in a sterile fashion. A surgical time-out was called the consent confirmed. Patient received preoperative antibiotics and Venodyne boots were in place. Local anesthesia was then infiltrated over the left inguinal ligament. A generous incision was made over the left inguinal ligament and carried out through subcutaneous tissue, past Ace's fascia and up to the external oblique aponeurosis. Additional local was infiltrated below the external oblique aponeurosis. This was then incised with a scalpel widened with the Metzenbaum scissors. The spermatic cord was dissected free from the surrounding inguinal canal and retracted using a [place] drain. A large indirect hernia was identified containing sigmoid colon. The sac was opened and contents were examined. Bowel integrity appeared to be intact with without evidence of ischemia. An incarcerated segment of omentum was found adherent to the sac. This mobile using electrocautery history of the abdominal cavity. The sac was then dissected free from the surrounding inguinal canal and dissected up to the internal ring. It was then ligated using a 0 Polysorb suture and excised. A large lipoma was also excised surrounding the inguinal canal. This was sent together with the hernia sac. Attention was then directed to the inguinal floor. Fibers of the internal oblique and transversalis aponeurosis were grasped with Allis clamps. This was then divided using electrocautery and the preperitoneal space entered. This was then widened using a open Ray-Campbell sponge. A large extended PHS mesh was then obtained. The circular underlay was deployed within the preperitoneal space in the overlay secured to the pubic tubercle, conjoined tendon and shelving edge of the inguinal ligament using 0 Polysorb sutures. A slit was made in the mesh in the mesh wrapped around the spermatic cord at the internal ring. This was secured to the shelving edge again using the 0 Polysorb suture. This was tight enough to allow only the tip of the index finger to pass. The remainder of the mesh was placed below the external oblique aponeurosis laterally. Wounds were then irrigated with saline solution and suctioned dry. External oblique aponeurosis was then closed using a running 2-0 Polysorb suture. Approximately 6 mL of Zenrelef was then instilled below the external oblique aponeurosis. Ace's fascia and dermis were reapproximated using interrupted 3-0 Polysorb sutures. Skin was then closed using a running subcuticular 4-0 Polysorb suture. Steri-Strips, 4 x 4 gauze and Tegaderm were then applied. The patient tolerated the procedure well. Sponge, instrument, and needle counts reported as correct. The patient was transferred to PACU in stable condition.
== END 2025-04-15 13:19 | disposition home or self-care (01) ==
LOC: HO.ED 13:20 → HO.SSS 13:43
PROVIDERS: Surgery; Emergency Provider Emergency Medicine; Visit Provider Emergency Medicine
PROC: (CPT 49507; principal; 2025-04-15 14:40)
DX: K40.90 Unilateral inguinal hernia, without obstruction or gangrene, not specified as recurrent (principal); Z03.818 Encounter for observation for suspected exposure to other biological agents ruled out; D17.5 Benign lipomatous neoplasm of intra-abdominal organs
CPT/HCPCS: 49507; 36415; 74177; 80053; 81001; 83605; 83690; 85025; 86850; 86900; 86901; 87637; 88302; 88304; 93005; 99285; C1781; C9088; J0330; J0690; J1100; J1308; J1885; J2003; J2270; J2405; J2704; J3010; Q9967

== ENCOUNTER → 2025-04-15 09:08 | Outpatient (BNV) | payer SELFPAY | PROVIDERS: Emergency Provider Emergency Medicine; Visit Provider Radiology Diagnostic Radiology | DX: K40.91 Unilateral inguinal hernia, without obstruction or gangrene, recurrent (principal) | CPT/HCPCS: 74177 ==

== ENCOUNTER → 2025-04-15 09:09 | Outpatient (BNV) | payer SELFPAY | PROVIDERS: Emergency Provider Emergency Medicine; Visit Provider Internal Medicine | DX: R00.1 Bradycardia, unspecified (principal) | CPT/HCPCS: 93010 ==

== ENCOUNTER → 2025-04-15 13:19 | Outpatient (BNV) | payer SELFPAY | PROVIDERS: Emergency Provider Emergency Medicine; Visit Provider Surgery | DX: K40.90 Unilateral inguinal hernia, without obstruction or gangrene, not specified as recurrent (principal) | CPT/HCPCS: 49507; 99222 ==